=== PATIENT | female | born 1995 | race Caucasian/White ===

== ENCOUNTER 2018-09-15 18:55 | Emergency (ER) | payer OTHER, SELFPAY ==
--- OUTSIDE RECORDS SUMMARY | 2018-09-15 18:57 | XMS REPORT ---
:1995 [facility] [address] [place] [address] Care Team Providers Name Role Phone Unavailable Unavailable Unavailable Problems This patient has no known problems. Allergies, Adverse Reactions, Alerts This patient has no known allergies or adverse reactions. Medications This patient has no known medications.
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
--- NOTE | 2018-09-15 20:03 | RAD REPORT ---
EXAM DESCRIPTION: RAD - Shoulder Left 2 View - 09/15/2018 7:57 pm CLINICAL HISTORY: Left shoulder pain FINDINGS: No fracture or dislocation is seen.
--- NOTE | 2018-09-15 20:05 | RAD REPORT ---
EXAM DESCRIPTION: Yaya Springer (2 Views)09/15/2018 7:57 pm CLINICAL HISTORY: Chest pain COMPARISON: None FINDINGS: The lungs appear clear of acute infiltrate. The heart is normal size IMPRESSION: No acute abnormalities displayed
[2018-09-15] MEDS ORDERED: IBUPROFEN 200 MG TAB PO ONE (20:16)
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
[2018-09-15] MEDS ORDERED: HYDROCODONE/APAP 5/325 MG TAB ONE (22:19)
== END 2018-09-15 22:26 | disposition home or self-care (01) ==
LOC: ER 18:55
DX: S13.4XXA Sprain of ligaments of cervical spine, initial encounter (principal); S43.492A Other sprain of left shoulder joint, initial encounter; V49.40XA Driver injured in collision with unspecified motor vehicles in traffic accident, initial encounter; F43.10 Post-traumatic stress disorder, unspecified
CPT/HCPCS: 71046; 72125; 99284

== ENCOUNTER 2020-04-21 13:05 | Emergency (ER) | payer BC, OTHER ==
--- OUTSIDE RECORDS SUMMARY | 2020-04-21 13:08 | XMS REPORT | Continuity of Care Document ---
:1995 Author Organization [facility] t Address [address] [place] [address] Care Team Providers Name Role Phone Angelika Butler Attending Clinician Doctor Unassigned, Name Attending Clinician Unavailable Honorio Worthy MD Attending Clinician Problems This patient has no known problems. Allergies, Adverse Reactions, Alerts This patient has no known allergies or adverse reactions. Medications This patient has no known medications. Procedures This patient has no known procedures. Encounters Start End Encounter Admission Attending Care Care Encounter Source Date/Time Date/Time Type Type Clinicians Facility Department ID 2019-08-29 2019-08-29 Emergency Lela Trino [facility] [id number] 17:15:04 19:33:00 Angelika Moran [id number] [place] [id number] [place] [id number] 2019-08-29 2019-08-29 Orders Doctor BAILEY [id number] 00:00:00 00:00:00 Only UnassignedLEWIS [id number] [place] [facility] [id number] 2019-02-16 2019-02-18 Urgent Deacon [facility] [id number] 19:07:34 15:32:49 Care [facility] [id number] Surgical [id number] [place] [id number] [address] [place] Results This patient has no known results.
[2020-04-21 13:51] LABS: Basophils % 0.3 % (0-1.3); Hematocrit 37.2 % (36.0-45.0); Lymphocytes % 13.5 % (15.3-44.8); MPV 9.6 fL (7.6-11.3); RBC Red Blood Cell Count 3.91 M/uL (3.86-4.86)
[2020-04-21] MEDS ORDERED: PROMETHAZINE INJ 25 MG/ML AMP ONE (13:52)
[2020-04-21] MEDS ORDERED: NA CHLORIDE 0.9% 1,000 ML ONE (13:52)
--- NOTE | 2020-04-21 14:28 | RAD REPORT ---
EXAM DESCRIPTION: US - Transvaginal OB - 04/21/2020 2:19 pm CLINICAL HISTORY: with pelvic pain COMPARISON: None. FINDINGS: The uterus measures 11 x 5 x 7 centimeters. A normal appearing gestational sac is present within the endometrium. Within this is a yolk sac and pole with a crown-rump length 1.8 centim eters. Cardiac activity 169 beats per minute 2 centimeter right ovarian cyst. Ovaries are normal in size and echotexture. . An adnexal mass is not noted. No significant free fluid is seen. IMPRESSION: Single live intrauterine with an estimated gestational age 8 weeks 0 days ANGEL 12/01/2020 2 centimeter right ovarian cyst
[2020-04-21 14:33] LABS: BUN Blood Urea Nitrogen 7 mg/dL (7-18); Bicarbonate 26 mmol/L (21-32); Glucose Level 84 mg/dL (74-106); Potassium 3.3 mmol/L (3.5-5.1); Sodium Level 138 mmol/L (136-145)
[2020-04-21 14:35] LABS: Urine Blood NEGATIVE (NEG); Urine Glucose NEGATIVE (NEG); Urine Protein 1+ (NEG)
[2020-04-21 14:39] LABS: HCG, Quantitative > 2000000 mIU/mL (1-3)
--- NOTE | 2020-04-21 15:00 | ER ---
Nurse's Notes [facility] Name: Mable Verma Age: 24 yrs Sex: Female : 1995 Arrival Date: 04/21/2020 Time: 13:07 Bed 17 Private MD: Diagnosis: Nausea and vomiting;8 weeks gestation of Presentation: 04/21 13:17 Chief complaint: Patient states: Dr. Camargo said if I don't come to the ER then he wont jl7 see me. I run the risk of miscarriage because I've been having really bad morning sickness and I've lost 8 pounds in 2 weeks. Reports lower abdominal cramping. Coronavirus screen: Client denies travel out of the [place] in the last 14 days. At this time, the client does not indicate any symptoms associated with coronavirus-19. Ebola Screen: No symptoms or risks identified at this time. Initial Sepsis Screen: Does the patient meet any 2 criteria? No. Patient's initial sepsis screen is negative. Does the patient have a suspected source of infection? No. Patient's initial sepsis screen is negative. Risk Assessment: Do you want to hurt yourself or someone else? Patient reports no desire to harm self or others. Onset of symptoms was April 07, 2020. Care prior to arrival: None. 13:17 Method Of Arrival: Ambulatory jl7 13:17 Acuity: WOJCIECH 3 jl7 Triage Assessment: 13:20 General: Appears in no apparent distress. uncomfortable, Behavior is calm, cooperative, jl7 appropriate for age. Pain: Complains of pain in right lower quadrant and left lower quadrant Pain currently is 3 out of 10 on a pain scale. GI: Reports nausea, vomiting. 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 - Social history:: Smoking status: Patient denies any tobacco usage or history of. Screenin:29 Abuse screen: Denies threats or abuse. Denies injuries from another. Nutritional ca1 screening: No deficits noted. Tuberculosis screening: No symptoms or risk factors identified. Fall Risk None identified. Assessment: 13:29 General: Appears in no apparent distress. comfortable, Behavior is calm, cooperative, ca1 appropriate for age. Pain: Complains of pain in right lower quadrant and left lower quadrant Pain currently is 3 out of 10 on a pain scale. Quality of pain is described as crampy. Neuro: Level of Consciousness is awake, alert, obeys commands, Oriented to person, place, time, situation. GI: Abdomen is round non-distended, Bowel sounds present X 4 quads. Abd is soft and non tender X 4 quads. Reports nausea, vomiting. : No signs and/or symptoms were reported regarding the genitourinary system. Derm: Skin is intact, is healthy with good turgor, Skin is pink, warm \T\ dry. Musculoskeletal: Circulation, motion, and sensation intact. Capillary refill < 3 seconds. 14:05 Reassessment: US at bedside. ca1 14:30 Reassessment: U/S COMPLETE, RESULTS PENDING. NO N/V NOTED AT THIS TIME. bp 15:25 Reassessment: Patient appears in no apparent distress at this time. Patient is alert, ca1 oriented x 3, equal unlabored respirations, skin warm/dry/pink. Vital Signs: 13:17 BP 118 / 75; Pulse 80; Resp 16; Temp 98.3; Pulse Ox 100% ; Weight 50.35 kg; Pain 3/10; jl7 14:30 BP 109 / 73; Pulse 77; Resp 16; Pulse Ox 100% ; bp 15:26 BP 98 / 53; Pulse 81; Resp 15 S; Pulse Ox 100% on R/A; ca1 ED Course: 13:07 Patient arrived in ED. as 13:09 Nere[facility] Dempsey [facility]-C [facility]. kb 13:10 Kishor Patel MD is Attending Physician. kb 13:19 Triage completed. jl7 13:20 Arm band placed on right wrist. jl7 13:28 Marie Mallory, ЕКАТЕРИНА is Primary Nurse. ca1 13:29 Patient has correct armband on for positive identification. Placed in gown. Bed in low ca1 position. Call light in reach. Side rails up X 1. Pulse ox on. NIBP on. 13:37 No provider procedures requiring assistance completed. Initial lab(s) drawn, by me, ca1 sent to lab. Inserted saline lock: 20 gauge in right antecubital area, using aseptic technique. Blood collected. 13:47 Radiology exam delayed due to test not completed at this time. aa4 14:15 US Transvaginal Ob In Process Unspecified. EDMS 15:26 IV discontinued, intact, bleeding controlled, No redness/swelling at site. Pressure ca1 dressing applied. Administered Medications: 13:39 Drug: NS 0.9% 1000 ml Route: IV; Rate: 1000 ml; Site: right antecubital; ca1 15:25 Follow up: Response: No adverse reaction; IV Status: Completed infusion; IV Intake: ca1 1000ml 13:40 Drug: Phenergan 6.25 mg Route: IVP; Site: right antecubital; ca1 15:01 Follow up: Response: Nausea is decreased bp Intake: 15:25 IV: 1000ml; Total: 1000ml. ca1 Outcome: 15:00 Discharge ordered by . saran 15:26 Discharged to home ambulatory. ca1 15:26 Condition: stable 15:26 Discharge instructions given to patient, Instructed on discharge instructions, follow up and referral plans. medication usage, Demonstrated understanding of instructions, follow-up care, medications, Prescriptions given X 1. 15:28 Patient left the ED. ca1 Signatures: Dispatcher [employer] EDN[place] Nereida Dempsey, BOGOIEC MOVING PICTURE PRODUCER-Jennifer Rangel Amanda aa4 Natasha Chopra RN RN jl7 Peltier, Brian, RN RN bp Acob, Cheryl, RN RN ca1
--- NOTE | 2020-04-21 15:01 | EDPHYS ---
Physician Documentation [facility] Name: Mable Verma Age: 24 yrs Sex: Female : 1995 Arrival Date: 04/21/2020 Time: 13:07 Bed 17 Private MD: ED Physician Kishor Patel HPI: 04/21 14:57 This 24 yrs old Female presents to ER via Ambulatory with complaints of kb Nausea/Vomiting - 8 weeks preg. 14:57 The patient has not experienced similar symptoms in the past. The patient has not kb recently seen a physician. 14:58 The patient presents to the emergency department with nausea and vomiting. The kb estimated gestational age is 8 weeks. course: care: none, Leakage of Fluid: none appreciated, Ultrasound: the patient has not had an ultrasound, Risk/complications: no obvious risks or complications are appreciated. Previous pregnancies: in previous pregnancies patient has had. Associated signs and symptoms: Pertinent positives: nausea, vomiting, Pertinent negatives: abdominal pain, chest pain, diarrhea, dysuria, fever, frequency, ruptured membranes, seizure, shortness of breath, vaginal bleeding, vaginal discharge. Pt reports she has had bad morning sickness for weeks. Called Dr Camargo's office to make and appt and they said to come to the ER. 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 - Social history:: Smoking status: Patient denies any tobacco usage or history of. ROS: 14:55 Constitutional: Negative for fever, chills, and weight loss, Cardiovascular: Negative kb for chest pain, palpitations, and edema, Respiratory: Negative for shortness of breath, cough, wheezing, and pleuritic chest pain, Back: Negative for injury and pain, : Negative for injury, bleeding, discharge, and swelling, MS/Extremity: Negative for injury and deformity, Skin: Negative for injury, rash, and discoloration, Neuro: Negative for headache, weakness, numbness, tingling, and seizure. 14:55 Abdomen/GI: Positive for nausea and vomiting, Negative for abdominal pain. Exam: 14:55 Constitutional: This is a well developed, well nourished patient who is awake, alert, kb and in no acute distress. Head/Face: Normocephalic, atraumatic. Chest/axilla: Normal chest wall appearance and motion. Nontender with no deformity. No lesions are appreciated. Cardiovascular: Regular rate and rhythm with a normal S1 and S2. No gallops, murmurs, or rubs. Normal PMI, no JVD. No pulse deficits. Respiratory: Lungs have equal breath sounds bilaterally, clear to auscultation and percussion. No rales, rhonchi or wheezes noted. No increased work of breathing, no retractions or nasal flaring. Abdomen/GI: Soft, non-tender, with normal bowel sounds. No distension or tympany. No guarding or rebound. No evidence of tenderness throughout. Skin: Warm, dry with normal turgor. Normal color with no rashes, no lesions, and no evidence of cellulitis. MS/ Extremity: Pulses equal, no cyanosis. Neurovascular intact. Full, normal range of motion. Neuro: Awake and alert, GCS 15, oriented to person, place, time, and situation. Cranial nerves II-XII grossly intact. Motor strength 5/5 in all extremities. Sensory grossly intact. Cerebellar exam normal. Normal gait. Vital Signs: 13:17 BP 118 / 75; Pulse 80; Resp 16; Temp 98.3; Pulse Ox 100% ; Weight 50.35 kg; Pain 3/10; jl7 14:30 BP 109 / 73; Pulse 77; Resp 16; Pulse Ox 100% ; bp 15:26 BP 98 / 53; Pulse 81; Resp 15 S; Pulse Ox 100% on R/A; ca1 MDM: 13:22 Patient medically screened. kb 14:54 Data reviewed: vital signs, nurses notes. Data interpreted: Pulse oximetry: on room air kb is 100 %. Interpretation: normal. Counseling: I had a detailed discussion with the patient and/or guardian regarding: the historical points, exam findings, and any diagnostic results supporting the discharge/admit diagnosis, lab results, radiology results, the need for outpatient follow up, an OB/Gyne specialist, to return to the emergency department if symptoms worsen or persist or if there are any questions or concerns that arise at home. 04/21 13:22 Order name: Quantitative Hcg; Complete Time: 14:42 kb 04/21 13:22 Order name: Abo/rh Typing; Complete Time: 14:26 kb 04/21 13:22 Order name: Basic Metabolic Panel; Complete Time: 14:42 kb 04/21 13:22 Order name: CBC with Diff; Complete Time: 14:08 kb 04/21 14:31 Order name: Urine Dipstick--Ancillary (enter results) bd 04/21 14:31 Order name: Urine --Ancillary (enter results) bd 04/21 13:22 Order name: Urine Test (obtain specimen); Complete Time: 13:31 kb 04/21 13:22 Order name: IV Saline Lock; Complete Time: 13:43 kb 04/21 13:22 Order name: Labs collected and sent; Complete Time: 13:43 kb 04/21 13:30 Order name: US Transvaginal Ob; Complete Time: 14:48 kb 04/21 14:36 Order name: Urine --Ancillary; Complete Time: 14:36 EDMS 04/21 14:36 Order name: Urine Dipstick-Ancillary; Complete Time: 14:36 EDMS 04/21 13:22 Order name: NPO; Complete Time: 13:31 kb 04/21 13:22 Order name: Urine Dipstick-Ancillary (obtain specimen); Complete Time: 13:31 kb 04/21 14:49 Order name: PO challenge; Complete Time: 15:01 kb Administered Medications: 13:39 Drug: NS 0.9% 1000 ml Route: IV; Rate: 1000 ml; Site: right antecubital; ca1 15:25 Follow up: Response: No adverse reaction; IV Status: Completed infusion; IV Intake: ca1 1000ml 13:40 Drug: Phenergan 6.25 mg Route: IVP; Site: right antecubital; ca1 15:01 Follow up: Response: Nausea is decreased bp Disposition: 04/22 13:37 Co-signature as Attending Physician, Kishor DURAN I agree with the assessment and bozena plan of care. Disposition: 04/21/20 15:00 Discharged to Home. Impression: Nausea and vomiting, 8 weeks gestation of . - Condition is Stable. - Discharge Instructions: First Trimester of , Ojfz-ox-Ormi, Nausea and Vomiting, Adult, [id number]. - Prescriptions for Diclegis 10- 10 mg Oral tablet,delayed release (DR/EC) - take 1 tablet by ORAL route once daily As needed; 20 tablet. - Medication Reconciliation Form, Thank You Letter, Antibiotic Education, Prescription Opioid Use, Work release form form. - Follow up: Emergency Department; When: As needed; Reason: Worsening of condition. Follow up: Private Physician; When: 2 - 3 days; Reason: Recheck today's complaints, Continuance of care, Re-evaluation by your physician. Signatures: Dispatcher [employer] EDMS Nereida Dempsey, MANAGER PARKING-C MANAGER PARKING-Kishor Barreto MD MD cha Leal, Jahala, RN RN jl7 Marie Mallory RN RN ca1 Miguel Apodaca RN bp Corrections: (The following items were deleted from the chart) 04/21 15:28 15:00 04/21/2020 15:00 Discharged to Home. Impression: Nausea and vomiting; 8 weeks ca1 gestation of . Condition is Stable. Forms are Medication Reconciliation Form, Thank You Letter, Antibiotic Education, Prescription Opioid Use. Follow up: Emergency Department; When: As needed; Reason: Worsening of condition. Follow up: Private Physician; When: 2 - 3 days; Reason: Recheck today's complaints, Continuance of care, Re-evaluation by your physician. kb
[2020-04-21 16:04] VITALS: TEMP 98.3; O2SAT 100
[2020-04-21 16:14] VITALS: BP 98/53
== END 2020-04-21 15:28 | disposition home or self-care (01) ==
LOC: ER 13:05
DX: O21.0 Mild hyperemesis gravidarum (principal); Z3A.08 8 weeks gestation of pregnancy
CPT/HCPCS: 96361; 85025; 80048; 36415; 86900; 81025; 86901; 84702; 81003; 76817; 96374; 99284; J2550; J7030

== ENCOUNTER 2020-05-15 12:40 | Emergency (ER) | payer BC, OTHER ==
[2020-05-15 13:16] LABS: Absolute Lymphocytes (CBC) 1.3 K/uL (0.7-4.9); Basophils % 0.6 % (0-1.3); Lymphocytes % 21.4 % (15.3-44.8); MPV 9.5 fL (7.6-11.3); RBC Red Blood Cell Count 4.13 M/uL (3.86-4.86)
[2020-05-15 13:51] LABS: BUN Blood Urea Nitrogen 7 mg/dL (7-18); Bicarbonate 26 mmol/L (21-32); Glucose Level 84 mg/dL (74-106); HCG, Quantitative 88952 mIU/mL (1-3); Potassium 3.6 mmol/L (3.5-5.1); Sodium Level 137 mmol/L (136-145)
--- NOTE | 2020-05-15 14:10 | ER ---
Nurse's Notes [facility] Name: Mable Verma Age: 25 yrs Sex: Female : 1995 Arrival Date: 05/15/2020 Time: 12:43 Bed 5 Private MD: Diagnosis: 11 weeks gestation of ;Threatened Presentation: 05/15 12:50 Chief complaint: Dark red vaginal bleeding since this morning. Pt reports she is approx hb 11 weeks , LMP 8/. . Coronavirus screen: At this time, the client does not indicate any symptoms associated with coronavirus-19. Ebola Screen: No symptoms or risks identified at this time. Initial Sepsis Screen: Does the patient meet any 2 criteria? No. Patient's initial sepsis screen is negative. Does the patient have a suspected source of infection? No. Patient's initial sepsis screen is negative. Risk Assessment: Do you want to hurt yourself or someone else? Patient reports no desire to harm self or others. Onset of symptoms was May 15, 2020. 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 - Social history:: Smoking status: Patient denies any tobacco usage or history of. Screenin:23 Abuse screen: Denies threats or abuse. Denies injuries from another. Nutritional iw screening: No deficits noted. Tuberculosis screening: No symptoms or risk factors identified. Fall Risk None identified. Assessment: 13:23 General: Appears in no apparent distress. Behavior is calm, cooperative. Pain: iw Complains of pain in left lower quadrant and right lower quadrant. Neuro: Level of Consciousness is awake, alert, obeys commands, Oriented to person, place, time, situation, Moves all extremities. Full function. Respiratory: Respiratory effort is even, unlabored, Respiratory pattern is regular, symmetrical. GI: Bowel sounds present X 4 quads. Abd is soft X 4 quads. Derm: Skin is intact, is healthy with good turgor. Vital Signs: 12:50 BP 115 / 61; Pulse 87; Resp 16; Temp 97.8; Pulse Ox 100% on R/A; Weight 48.99 kg; hb Height 5 ft. 1 in. (154.94 cm); Pain 4/10; 12:50 Body Mass Index 20.41 (48.99 kg, 154.94 cm) hb ED Course: 12:43 Patient arrived in ED. ag5 12:47 Ne[facility] Dem[facility]-C [facility]. kb 12:47 Warner Brewer MD is Attending Physician. kb 12:52 Triage completed. hb 12:52 Arm band placed on. hb 12:55 Verito Greenwood, RN is Primary Nurse. iw 13:14 by ED staff, sent to lab. Inserted saline lock: 20 gauge in right antecubital area, iw using aseptic technique. Blood collected. 13:30 Patient has correct armband on for positive identification. iw 13:45 1St Trimest Single 1St Fetus In Process Unspecified. EDMS 14:24 No provider procedures requiring assistance completed. IV discontinued, intact, iw bleeding controlled, No redness/swelling at site. Pressure dressing applied. Administered Medications: No medications were administered Outcome: 14:09 Discharge ordered by . kb 14:24 Discharged to home ambulatory. iw 14:24 Condition: good 14:24 Discharge instructions given to patient, Instructed on discharge instructions, follow up and referral plans. Demonstrated understanding of instructions, follow-up care. 14:25 Patient left the ED. iw Signatures: Dispatcher [employer] EDMS Nereida Dempsey FNP-C FNP-Verito Groves RN RN Miley Wallace RN RN Monalisa Buckley ag5
--- NOTE | 2020-05-15 14:10 | EDPHYS ---
Physician Documentation [facility] Name: Mable Verma Age: 25 yrs Sex: Female : 1995 Arrival Date: 05/15/2020 Time: 12:43 Bed 5 Private MD: ED Physician Warner Brewer HPI: 05/15 12:52 This 25 yrs old Female presents to ER via Ambulatory with complaints of kb Abdominal Cramping, Vaginal Bleeding, + Preg <12wks. 12:52 The patient presents to the emergency department with vaginal bleeding, that is kb moderate. The estimated gestational age is 11 weeks. course: care: private OB physician, Dr. Camargo. Previous pregnancies: in previous pregnancies patient has had. Associated signs and symptoms: Pertinent positives: abdominal pain, vaginal bleeding. The patient has not experienced similar symptoms in the past. The patient has not recently seen a physician. Pt reports she had a gush of blood come from her vagina when driving home this morning. States she called her OB and was told to come to the ER. . 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 - Social history:: Smoking status: Patient denies any tobacco usage or history of. ROS: 12:54 Constitutional: Negative for fever, chills, and weight loss, Cardiovascular: Negative kb for chest pain, palpitations, and edema, Respiratory: Negative for shortness of breath, cough, wheezing, and pleuritic chest pain, Abdomen/GI: Negative for abdominal pain, nausea, vomiting, diarrhea, and constipation, MS/Extremity: Negative for injury and deformity, Skin: Negative for injury, rash, and discoloration, Neuro: Negative for headache, weakness, numbness, tingling, and seizure. 12:54 Abdomen/GI: Positive for abdominal cramps. 12:54 : Positive for vaginal bleeding. Exam: 12:54 Constitutional: This is a well developed, well nourished patient who is awake, alert, kb and in no acute distress. Head/Face: Normocephalic, atraumatic. Chest/axilla: Normal chest wall appearance and motion. Nontender with no deformity. No lesions are appreciated. Cardiovascular: Regular rate and rhythm with a normal S1 and S2. No gallops, murmurs, or rubs. Normal PMI, no JVD. No pulse deficits. Respiratory: Lungs have equal breath sounds bilaterally, clear to auscultation and percussion. No rales, rhonchi or wheezes noted. No increased work of breathing, no retractions or nasal flaring. Back: No spinal tenderness. No costovertebral tenderness. Full range of motion. Skin: Warm, dry with normal turgor. Normal color with no rashes, no lesions, and no evidence of cellulitis. MS/ Extremity: Pulses equal, no cyanosis. Neurovascular intact. Full, normal range of motion. Neuro: Awake and alert, GCS 15, oriented to person, place, time, and situation. Cranial nerves II-XII grossly intact. Motor strength 5/5 in all extremities. Sensory grossly intact. Cerebellar exam normal. Normal gait. 12:54 Abdomen/GI: Inspection: abdomen appears normal, Bowel sounds: normal, in all quadrants, Palpation: soft, in all quadrants, moderate abdominal tenderness, in the right lower quadrant and left lower quadrant. Vital Signs: 12:50 BP 115 / 61; Pulse 87; Resp 16; Temp 97.8; Pulse Ox 100% on R/A; Weight 48.99 kg; hb Height 5 ft. 1 in. (154.94 cm); Pain 4/10; 12:50 Body Mass Index 20.41 (48.99 kg, 154.94 cm) hb MDM: 12:50 Patient medically screened. kb 12:54 Data reviewed: vital signs, nurses notes. Data interpreted: Pulse oximetry: on room air kb is 100 %. Interpretation: normal. 14:08 Counseling: I had a detailed discussion with the patient and/or guardian regarding: the kb historical points, exam findings, and any diagnostic results supporting the discharge/admit diagnosis, lab results, radiology results, the need for outpatient follow up, an OB/Gyne specialist, to return to the emergency department if symptoms worsen or persist or if there are any questions or concerns that arise at home. ED course: Protagen reports FHT 153, measuring 11 weeks 1 day. Small subchorionic bleed. 05/15 12:52 Order name: Quantitative Hcg; Complete Time: 13:57 kb 05/15 12:52 Order name: Basic Metabolic Panel; Complete Time: 13:57 kb 05/15 12:52 Order name: Urine Dipstick-Ancillary (obtain specimen) kb 05/15 12:52 Order name: CBC with Diff; Complete Time: 13:30 kb 05/15 13:45 Order name: 1St Trimest Single 1St Fetus EDMS 05/15 12:52 Order name: IV Saline Lock; Complete Time: 13:14 kb 05/15 12:52 Order name: Labs collected and sent; Complete Time: 13:14 kb 05/15 12:52 Order name: NPO; Complete Time: 13:14 kb Administered Medications: No medications were administered Disposition: 05/15/20 14:09 Discharged to Home. Impression: 11 weeks gestation of , Threatened . - Condition is Stable. - Discharge Instructions: Vaginal Bleeding During , First Trimester, Subchorionic Hematoma, Threatened Miscarriage, [id number]. - Medication Reconciliation Form, Thank You Letter, Antibiotic Education, Prescription Opioid Use, Work release form form. - Follow up: Emergency Department; When: As needed; Reason: Worsening of condition. Follow up: Private Physician; When: 2 - 3 days; Reason: Recheck today's complaints, Continuance of care, Re-evaluation by your physician. Addendum: 05/16/2020 14:40 Co-signature as Attending Physician, Warner Brewer MD I agree with the assessment and k dr plan of care. Signatures: Dispatcher [employer] [facility] Nereida Dempsey, PILE DRIVING SUPERVISOR-C PILE DRIVING SUPERVISOR-Ckb Warner Brewer MD MD [facility] Verito Greenwood, ЕКАТЕРИНА RN iw Miley Wallace RN RN Corrections: (The following items were deleted from the chart) 05/15 13:45 12:50 Transvaginal Ob+US.RAD.BRZ ordered. [facility] 14:25 14:09 05/15/2020 14:09 Discharged to Home. Impression: 11 weeks gestation of ; iw Threatened . Condition is Stable. Forms are Medication Reconciliation Form, Thank You Letter, Antibiotic Education, Prescription Opioid Use. Follow up: Emergency Department; When: As needed; Reason: Worsening of condition. Follow up: Private Physician; When: 2 - 3 days; Reason: Recheck today's complaints, Continuance of care, Re-evaluation by your physician. kb
--- NOTE | 2020-05-15 14:19 | RAD REPORT ---
EXAM DESCRIPTION: US - 1St Trimest Single 1St Fetus - 05/15/2020 2:00 pm CLINICAL HISTORY: Abd cramping, ;Vaginal bleeding COMPARISON: No comparisons FINDINGS: A single gestational sac is seen within the uterus. The shape of the sac is within normal limits for gestational age. Within the sac is a single pole with crown-rump length of 4.5 cm, c orrelating to estimated gestational age of 11 weeks 1 day. Estimated date of delivery is 12/03/2020. Heart rate is 152 BPM. Placenta demonstrates evidence of a marginal placenta previa. 15 mm subchorionic bleed is seen inferi madhu. The maternal adnexa are within normal limits. Left ovary is obscured by bowel gas. Normal Doppler blo od flow was demonstrated to the right ovary. IMPRESSION: Single live early intrauterine gestation with estimated gestational age of 11 weeks 1 da y, ANGEL 12/03/2020. 15 mm inferiorly located subchorionic bleed. Marginal placenta previa suspected. This can be reassessed on mid second trimester followup sonograph y.
--- OUTSIDE RECORDS SUMMARY | 2020-05-15 14:27 | XMS REPORT | Continuity of Care Document ---
:[address] [facility] t Address [address] [place] [address] Care Team Providers Name Role Phone Angelika [...] Department ID 2019-08-29 2019-08-29 Emergency Lela Trino [facility] [id number] 17:15:04 19:33:00 Angelika Moran [id number] [place] [id number] [place] [phone] [id number] 2019-08-29 2019-08-29 Orders Doctor BAILEY [id number] 00:00:00 00:00:00 Only UnassLEWIS randolph [id number] [place] [facility] [id number] 2019-02-16 2019-02-18 Urgent Deacon MSDANIEL [id number] 19:07:34 15:32:49 Care [facility] [id number] Surgical [id number] [place] [phone] [address] [place] Results This patient has no known results.
[2020-05-15 14:52] VITALS: BP 115/61; TEMP 97.8; O2SAT 100
== END 2020-05-15 14:25 | disposition home or self-care (01) ==
LOC: ER 12:40
DX: O20.0 Threatened abortion (principal); Z3A.11 11 weeks gestation of pregnancy
CPT/HCPCS: 36415; 76801; 80048; 84702; 85025; 99283

== ENCOUNTER 2020-06-14 01:28 | Emergency (ER) | payer BC, OTHER ==
--- OUTSIDE RECORDS SUMMARY | 2020-06-14 01:30 | XMS REPORT | Continuity of Care Document ---
:[address] [facility] t Address [address] [place] [address] Care Team Providers Name Role Phone Angelika [...] Department ID 2019-08-29 2019-08-29 Emergency Lela Trino [facility] [id number] 17:15:04 19:33:00 Angelika Moran [id number] [place] [id number] [place] [id number] 2019-08-29 2019-08-29 Orders Doctor BAILEY [id number] 00:00:00 00:00:00 Only UnassignedLEWIS [id number] [place] [facility] [id number] 2019-02-16 2019-02-18 Urgent Deacon [facility] [id number] 19:07:34 15:32:49 Care [facility] [id number] Surgical [id number] Specialti [phone] es [address] [place] Results This patient has no known results.
[2020-06-14] MEDS ORDERED: PROMETHAZINE INJ 25 MG/ML AMP ONE (02:32)
[2020-06-14 02:33] LABS: Absolute Lymphocytes (CBC) 1.1 K/uL (0.7-4.9); Basophils % 0.2 % (0-1.3); Hematocrit 36.2 % (36.0-45.0); Lymphocytes % 8.5 % (15.3-44.8); MPV 9.4 fL (7.6-11.3); RBC Red Blood Cell Count 3.83 M/uL (3.86-4.86)
[2020-06-14] MEDS ORDERED: FAMOTIDINE 20 MG/2 ML VIAL IV ONE (02:33)
[2020-06-14] MEDS ORDERED: NA CHLORIDE 0.9% 1,000 ML ONE ×2 (02:33→05:14)
[2020-06-14] MEDS ORDERED: MORPHINE 2 MG/ML SYR ONE ×2 (02:33→04:25)
[2020-06-14 02:58] LABS: Urine Blood 3+ (NEG); Urine Glucose NEGATIVE (NEG); Urine Protein 3+ (NEG); Urine Specific Gravity 1.025 (1.005-1.030)
[2020-06-14 03:04] LABS: ALT/SGPT 14 U/L (12-78); AST/SGOT 11 U/L (15-37); Albumin 3.2 g/dL (3.4-5.0); Alkaline Phosphatase 60 U/L (45-117); BUN Blood Urea Nitrogen 11 mg/dL (7-18); Bicarbonate 27 mmol/L (21-32); Bilirubin Direct < 0.1 mg/dL (0-0.2); Bilirubin Total 0.3 mg/dL (0.2-1.0); Glucose Level 86 mg/dL (74-106); HCG, Quantitative 22229 mIU/mL (1-3); Lipase 157 U/L (73-393); Potassium 3.7 mmol/L (3.5-5.1); Sodium Level 140 mmol/L (136-145)
[2020-06-14] MEDS ORDERED: CEFTRIAXONE/SWI 1gm 1 GM/10 ML SYR ONE (03:06)
[2020-06-14 04:06] LABS: Urine Bacteria >50 /HPF (<20); Urine Culture Reflex Order NOT NEEDED; Urine Mucus 2+ /HPF (NONE SEEN)
[2020-06-14] MEDS ORDERED: ONDANSETRON 4 MG/2 ML VIAL ONE (05:21)
--- NOTE | 2020-06-14 06:21 | ER ---
Nurse's Notes [facility] Name: Mable Verma Age: 25 yrs Sex: Female : 1995 Arrival Date: 06/14/2020 Time: 01:30 Bed 17 Private MD: Diagnosis: Acute Pyelonephritis;Vomiting Presentation: 06/14 01:40 Chief complaint: Patient states: I am having right lower abdominal pain that radiates jb4 to my back. I have had UTI's in the past. I was told that I currently have a UTI and have Ecoli in my urine. Coronavirus screen: Client denies travel out of the [place] in the last 14 days. Client presents with at least one sign or symptom that may indicate coronavirus-19. Standard/surgical mask placed on the client. Ebola Screen: No symptoms or risks identified at this time. Initial Sepsis Screen: Does the patient meet any 2 criteria? No. Patient's initial sepsis screen is negative. Does the patient have a suspected source of infection? Yes: Dysuria/Frequency/Urgency/UTI. Risk Assessment: Do you want to hurt yourself or someone else? Patient reports no desire to harm self or others. Onset of symptoms was June 14, 2020. Transition of care: patient was not received from another setting of care. 01:40 Method Of Arrival: Wheelchair jb4 01:40 Acuity: WOJCIECH 3 jb4 BUSINESS FUNCTIONAL ANALYST: 01:44 Pt reports being 15 weeks . jb4 Historical: - Allergies: 01:44 No Known Allergies; jb4 - Home Meds: 01:44 None [Active]; jb4 - PMHx: 01:44 PTSD; Anxiety; UTI; jb4 - PSHx: 01:44 None; jb4 - Immunization history:: Adult Immunizations up to date. - Social history:: Smoking status: Patient denies any tobacco usage or history of. Patient uses street drugs, marijuana, Patient/guardian denies using alcohol. Screenin:15 Abuse screen: Denies threats or abuse. Nutritional screening: No deficits noted. em Tuberculosis screening: No symptoms or risk factors identified. Fall Risk None identified. Assessment: 01:45 General: Appears in no apparent distress. uncomfortable, Behavior is calm, cooperative, jb4 appropriate for age. Pain: Complains of pain in right lower quadrant Pain radiates to right low back Pain currently is 10 out of 10 on a pain scale. Neuro: Level of Consciousness is awake, alert, obeys commands, Oriented to person, place, time, situation. Cardiovascular: Patient's skin is warm and dry. Respiratory: Airway is patent Respiratory effort is even, unlabored, Respiratory pattern is regular, symmetrical. GI: Abdomen is flat, non-distended, Reports lower abdominal pain. : Urine is cloudy, Reports pain in right flank(s), lower quadrant(s). EENT: No signs and/or symptoms were reported regarding the EENT system. Derm: Skin is intact, Skin is pink, warm \\T\\ dry. Musculoskeletal: Circulation, motion, and sensation intact. Range of motion: intact in all extremities. 03:00 Reassessment: Patient appears in no apparent distress at this time. Patient and/or jb4 family updated on plan of care and expected duration. Pain level reassessed. Patient is alert, oriented x 3, equal unlabored respirations, skin warm/dry/pink. Patient states feeling better. 04:00 Reassessment: Patient appears in no apparent distress at this time. Patient and/or jb4 family updated on plan of care and expected duration. Pain level reassessed. Patient is alert, oriented x 3, equal unlabored respirations, skin warm/dry/pink. 05:03 Reassessment: Patient appears in no apparent distress at this time. Patient and/or jb4 family updated on plan of care and expected duration. Pain level reassessed. Patient is alert, oriented x 3, equal unlabored respirations, skin warm/dry/pink. Provider notified that patients blood pressure dropped to 87/53 after morphine administration. See mar for orders. Patient states feeling better. 05:32 Reassessment: introduced self as nurse report received from Matthew WILLAMS. . cr4 06:18 Reassessment: Patient and/or family updated on plan of care and expected duration. Pain cr4 level reassessed. Patient is alert, oriented x 3, equal unlabored respirations, skin warm/dry/pink. Patient states feeling better. GI:. 07:18 Reassessment: Patient appears in no apparent distress at this time. Patient and/or em family updated on plan of care and expected duration. Pain level reassessed. Patient is alert, oriented x 3, equal unlabored respirations, skin warm/dry/pink. shift mgr nurse was unable to give report due to shift change Patient states feeling better. 07:37 Reassessment: report given to ЕКАТЕРИНА Orozco at [facility], pending EMS transportation. em 08:30 Reassessment: report given to [facility]. em Vital Signs: 01:40 BP 115 / 75; Pulse 68; Resp 16; Temp 99.5(TE); Pulse Ox 98% on R/A; Pain 10/10; jb4 03:00 BP 100 / 63; Pulse 79; Resp 16; Pulse Ox 100% on R/A; jb4 04:15 BP 106 / 74; Pulse 84; Resp 16; Pulse Ox 100% on R/A; jb4 05:00 BP 87 / 53; Pulse 74; Resp 16; Temp 98.8(O); Pulse Ox 98% on R/A; jb4 05:32 BP 93 / 55; Pulse 80; Pulse Ox 96% ; cr4 06:19 BP 94 / 59; Pulse 66; Resp 20; Pulse Ox 100% ; cr4 07:14 BP 101 / 59; Pulse 69; Resp 18; Pulse Ox 99% on R/A; Pain 7/10; em Vitals: 03:00 Heart Tones 141. jb4 ED Course: 01:30 Patient arrived in ED. ag3 01:33 Fadi Bhatia, ЕКАТЕРИНА is Primary Nurse. jb4 01:33 Cory Ferreira MD is Attending Physician. mh7 01:43 Triage completed. jb4 01:44 Arm band placed on right wrist. jb4 02:15 Initial lab(s) drawn, by me, sent to lab. Inserted saline lock: 20 gauge in right jb4 antecubital area, using aseptic technique. Blood collected. 05:22 initiated transfer with Renetta from [facility] transfer center. She stated "the doctor will [facility] accept the patient, but we are waiting for a bed. I will call you back when there is a bed available.". 06:17 COVID-19 Sent. cr4 06:30 administrative approval given by Conchis Wang/ patient has been accepted to [address] 10 D 1066/ Dr. Lundy has accepted the patient in transfer/ report to be called to [phone]. 07:15 Placed in gown. Bed in low position. Call light in reach. em 08:36 No provider procedures requiring assistance completed. Patient admitted, IV remains in em place. Administered Medications: 02:28 Drug: Pepcid 20 mg Route: IVP; Site: right antecubital; jb4 03:00 Follow up: Response: No adverse reaction jb4 02:30 Drug: Phenergan 12.5 mg Route: IVP; Site: right antecubital; jb4 03:00 Follow up: Response: No adverse reaction; Nausea is decreased jb4 02:33 Drug: NS 0.9% 1000 ml Route: IV; Rate: 1000 ml; Site: right antecubital; jb4 08:30 Follow up: IV Status: Completed infusion; IV Intake: 1000ml em 02:33 Drug: morphine 2 mg Route: IVP; Site: right antecubital; jb4 02:57 Drug: Rocephin - (cefTRIAXone) 1 grams {Note: Given IVP per pharmacy protocol.} Route: jb4 IVPB; Infused Over: 30 mins; Site: right antecubital; 03:00 Follow up: IV Status: Completed infusion; IV Intake: 10ml jb4 03:30 Follow up: Response: No adverse reaction jb4 04:18 Drug: morphine 2 mg Route: IVP; Site: right antecubital; cr4 05:05 Follow up: Response: No adverse reaction; Pain is decreased; RASS: Alert and Calm (0) jb4 05:05 Drug: NS 0.9% 1000 ml Route: IV; Rate: 1 bolus; Site: right antecubital; jb4 06:18 Follow up: IV Status: Completed infusion; IV Intake: 1000ml cr4 05:15 Drug: Zofran (Ondansetron) 4 mg Route: IVP; Site: right antecubital; cr4 06:00 Follow up: Response: No adverse reaction; Nausea is decreased cr4 Intake: 03:00 IV: 10ml; Total: 10ml. jb4 06:18 IV: 1000ml; Total: 1010ml. cr4 08:30 IV: 1000ml; Total: 2010ml. em Outcome: 06:20 ER care complete, transfer ordered by MD. rosario 08:36 Transferred by ground EMS to [facility], Transfer form em completed. X-rays sent w/ patient. 08:36 Condition: stable 08:36 Instructed on the need for transfer, Demonstrated understanding of instructions. 08:37 Patient left the ED. em Addendum: 06/17/2020 08:37 Addendum: Culture Results: Positive urine culture. pt was d/c from [facility] last night, i w currently on abx. Signatures: Jaya Silverio, RN RN Verito Cutler, RN ЕКАТЕРИНА iw Tori Murcia, RN RN cr4 Fadi Bhatia RN RN 4 Adan Erwin [facility] Ana Townsend 3 Cory Ferreira MD MD mh7 Corrections: (The following items were deleted from the chart) 06/14 06:48 06:38 administrative approval given by Renetta Mendoza/ patient has been accepted to [place] [id number] [address] 10 D 1066/ Dr. Lundy has accepted the patient in transfer/ report to be called to [phone] [facility]
--- NOTE | 2020-06-14 06:21 | EDPHYS ---
Physician Documentation [facility] Name: Mable Verma Age: 25 yrs Sex: Female : 1995 Arrival Date: 06/14/2020 Time: 01:30 Bed 17 Private MD: ED Physician Cory Ferreira HPI: 06/14 02:38 This 25 yrs old Female presents to ER via Wheelchair with complaints of mh7 Abdominal Pain, Back Pain. 02:38 The patient presents with pain that is acute, with no known mechanism of injury. mh7 02:40 The symptoms are located in the right low back. Onset: The symptoms/episode mh7 began/occurred last night. The pain radiates to the abdomen. Associated signs and symptoms: Pertinent positives: abdominal pain, nausea, vomiting, Pertinent negatives: chest pain, constipation, dysuria, fever, headache, hematuria, incontinence, numbness, tingling, urinary retention, weakness. The problem was sustained from unknown cause. Modifying factors: The patient symptoms are alleviated by nothing, the patient symptoms are aggravated by movement. Severity of symptoms: At their worst the symptoms were moderate, last night, in the emergency department the symptoms are unchanged. HOSPITAL ORDERLY: 01:44 Pt reports being 15 weeks . jb4 Historical: - Allergies: 01:44 No Known Allergies; jb4 - Home Meds: 01:44 None [Active]; jb4 - PMHx: 01:44 PTSD; Anxiety; UTI; jb4 - PSHx: 01:44 None; jb4 - Immunization history:: Adult Immunizations up to date. - Social history:: Smoking status: Patient denies any tobacco usage or history of. Patient uses street drugs, marijuana, Patient/guardian denies using alcohol. ROS: 02:40 Constitutional: Negative for fever, chills, and weight loss, Eyes: Negative for injury, mh7 pain, redness, and discharge, ENT: Negative for injury, pain, and discharge, Neck: Negative for injury, pain, and swelling, Cardiovascular: Negative for chest pain, palpitations, and edema, Respiratory: Negative for shortness of breath, cough, wheezing, and pleuritic chest pain, : Negative for injury, bleeding, discharge, and swelling, MS/Extremity: Negative for injury and deformity, Skin: Negative for injury, rash, and discoloration, Neuro: Negative for headache, weakness, numbness, tingling, and seizure, Psych: Negative for depression, anxiety, suicide ideation, homicidal ideation, and hallucinations, Allergy/Immunology: Negative for hives, rash, and allergies, Endocrine: Negative for neck swelling, polydipsia, polyuria, polyphagia, and marked weight changes, Hematologic/Lymphatic: Negative for swollen nodes, abnormal bleeding, and unusual bruising. Exam: 06:01 Head/Face: Normocephalic, atraumatic. Eyes: Pupils equal round and reactive to light, mh7 extra-ocular motions intact. Lids and lashes normal. Conjunctiva and sclera are non-icteric and not injected. Cornea within normal limits. Periorbital areas with no swelling, redness, or edema. Neck: Trachea midline, no thyromegaly or masses palpated, and no cervical lymphadenopathy. Supple, full range of motion without nuchal rigidity, or vertebral point tenderness. No Meningismus. Chest/axilla: Normal chest wall appearance and motion. Nontender with no deformity. No lesions are appreciated. Cardiovascular: Regular rate and rhythm with a normal S1 and S2. No gallops, murmurs, or rubs. Normal PMI, no JVD. No pulse deficits. Respiratory: Lungs have equal breath sounds bilaterally, clear to auscultation and percussion. No rales, rhonchi or wheezes noted. No increased work of breathing, no retractions or nasal flaring. 06:01 Skin: Warm, dry with normal turgor. Normal color with no rashes, no lesions, and no evidence of cellulitis. MS/ Extremity: Pulses equal, no cyanosis. Neurovascular intact. Full, normal range of motion. Neuro: Awake and alert, GCS 15, oriented to person, place, time, and situation. Cranial nerves II-XII grossly intact. Motor strength 5/5 in all extremities. Sensory grossly intact. Cerebellar exam normal. Normal gait. Psych: Awake, alert, with orientation to person, place and time. Behavior, mood, and affect are within normal limits. 06:01 Constitutional: The patient appears in no acute distress, alert, awake, uncomfortable. 06:01 Abdomen/GI: Inspection: gravid appearance, is noted, Bowel sounds: normal, in all quadrants, Palpation: moderate abdominal tenderness, in the suprapubic area, posterior aspect of right lateral abdomen and right lower quadrant, Rectal exam: the exam is deferred, because of patient request, Indicators: McBurney's point is not tender, Malhotra's sign is negative, Rovsing's sign is negative, Obturator sign is negative, Psoas sign is negative, Liver: no appreciated palpable abnormalities, Hernia: not appreciated. 06:01 Back: normal spinal alignment noted, CVA tenderness, that is moderate, is noted on the right, muscle spasm, is not present. 06:01 : CVA tenderness, on the right, Pelvic Exam: The exam is refused by the patient/guardian. The risks and consequences are understood by the patient, Gravid exam: Fundal height: consistent with gestational age, Bladder: tenderness, that is moderate. Vital Signs: 01:40 BP 115 / 75; Pulse 68; Resp 16; Temp 99.5(TE); Pulse Ox 98% on R/A; Pain 10/10; jb4 03:00 BP 100 / 63; Pulse 79; Resp 16; Pulse Ox 100% on R/A; jb4 04:15 BP 106 / 74; Pulse 84; Resp 16; Pulse Ox 100% on R/A; jb4 05:00 BP 87 / 53; Pulse 74; Resp 16; Temp 98.8(O); Pulse Ox 98% on R/A; jb4 05:32 BP 93 / 55; Pulse 80; Pulse Ox 96% ; cr4 06:19 BP 94 / 59; Pulse 66; Resp 20; Pulse Ox 100% ; cr4 07:14 BP 101 / 59; Pulse 69; Resp 18; Pulse Ox 99% on R/A; Pain 7/10; em MDM: 06:01 Differential diagnosis: Obesity Pyelonephritis Ureterolithiasis. Data [facility] reviewed: vital signs, nurses notes, lab test result(s), Beta HCG: CBC, electrolytes, urinalysis. Data interpreted: Pulse oximetry: on room air is 96 %. Interpretation: normal. Counseling: I had a detailed discussion with the patient and/or guardian regarding: the historical points, exam findings, and any diagnostic results supporting the discharge/admit diagnosis, lab results, the need to transfer to another facility, for higher level of care, [facility] does not immediately have the required specialist. Response to treatment: the patient's symptoms have mildly improved after treatment. 06:20 Patient medically screened. [facility] 06/14 02:04 Order name: Basic Metabolic Panel; Complete Time: 03:30 [facility] 06/14 02:04 Order name: CBC with Diff; Complete Time: 02:54 [facility] 06/14 02:04 Order name: Hepatic Function; Complete Time: 03:30 [facility] 06/14 02:04 Order name: Lipase; Complete Time: 03:30 [facility] 06/14 02:04 Order name: HCG-Quantitative; Complete Time: 03:30 [facility] 06/14 02:52 Order name: Urine Dipstick--Ancillary (enter results); Complete Time: 03:30 [facility] 06/14 03:05 Order name: Urine Culture [facility] [place] 06/14 03:05 Order name: Urine Microscopic Only; Complete Time: 05:47 [facility] [place] 06/14 05:15 Order name: COVID-19 [facility] 06/14 07:07 Order name: SARS-COV-2 RT PCR [facility] 06/14 02:04 Order name: IV Saline Lock; Complete Time: 02:34 [facility] 06/14 02:04 Order name: Labs collected and sent; Complete Time: 02:34 [facility] 06/14 02:04 Order name: Urine Dipstick-Ancillary (obtain specimen); Complete Time: 02:45 [facility] 06/14 02:19 Order name: Heart Tones; Complete Time: 03:27 [facility] Administered Medications: 02:28 Drug: Pepcid 20 mg Route: IVP; Site: right antecubital; jb4 03:00 Follow up: Response: No adverse reaction [facility] [place] 02:30 Drug: Phenergan 12.5 mg Route: IVP; Site: right antecubital; jb4 03:00 Follow up: Response: No adverse reaction; Nausea is decreased jb4 02:33 Drug: NS 0.9% 1000 ml Route: IV; Rate: 1000 ml; Site: right antecubital; jb4 08:30 Follow up: IV Status: Completed infusion; IV Intake: 1000ml 02:33 Drug: morphine 2 mg Route: IVP; Site: right antecubital; jb4 02:57 Drug: Rocephin - (cefTRIAXone) 1 grams {Note: Given IVP per pharmacy protocol.} Route: jb4 IVPB; Infused Over: 30 mins; Site: right antecubital; 03:00 Follow up: IV Status: Completed infusion; IV Intake: 10ml jb4 03:30 Follow up: Response: No adverse reaction jb4 04:18 Drug: morphine 2 mg Route: IVP; Site: right antecubital; cr4 05:05 Follow up: Response: No adverse reaction; Pain is decreased; RASS: Alert and Calm (0) jb4 05:05 Drug: NS 0.9% 1000 ml Route: IV; Rate: 1 bolus; Site: right antecubital; jb4 06:18 Follow up: IV Status: Completed infusion; IV Intake: 1000ml cr4 05:15 Drug: Zofran (Ondansetron) 4 mg Route: IVP; Site: right antecubital; cr4 06:00 Follow up: Response: No adverse reaction; Nausea is decreased cr4 Disposition: 06/14/20 06:20 [facility] Diagnosis are Acute Pyelonephritis, Vomiting. - Reason for transfer: Higher level of care. - Accepting physician is Dr. Lundy. - Condition is Stable. - Problem is new. - Symptoms are unchanged. Signatures: Dispatcher [employer] [facility] Jaya Silverio RN Tori Marion RN RN cr4 Fadi Bhatia RN RN jb4 Cory Ferreira MD MD mh7 Corrections: (The following items were deleted from the chart) 05:46 05:16 CORONAVIRUS ordered. [facility] EDPR 06:41 06:20 06/14/2020 06:20 [facility] Diagnosis is Acute 7 Pyelonephritis; Vomiting. Reason for transfer: Higher level of care. Accepting physician is Dr. Sarabia. Condition is Stable. Problem is new. Symptoms are unchanged. [facility] 08:37 06:41 06/14/2020 06:20 [facility] Diagnosis is Acute em Pyelonephritis; Vomiting. Reason for transfer: Higher level of care. Accepting physician is Dr. Lundy. Condition is Stable. Problem is new. Symptoms are unchanged. 7
[2020-06-14 15:30] VITALS: TEMP 98.8
[2020-06-14 15:36] VITALS: BP 101/59; O2SAT 99
== END 2020-06-14 08:37 | disposition short-term general hospital (02) ==
LOC: ER 01:28
DX: O23.02 Infections of kidney in pregnancy, second trimester (principal); Z3A.15 15 weeks gestation of pregnancy; Z20.828 Contact with and (suspected) exposure to other viral communicable diseases
CPT/HCPCS: 96361; 87088; 85025; 87086; 80048; 36415; 80076; 84702; 87077; 87186; 83690; 96375; 96374; 99285; U0003; J2550; J2270 ×2; J0696; J7030 ×2; J2405; 81003; 81015

== ENCOUNTER 2020-11-11 11:42 | Inpatient (IN) | payer BC, OTHER ==
[2020-11-11] MEDS ORDERED: Ringers Lactate 1,000 ML IV PRN (18:01)
--- OUTSIDE RECORDS SUMMARY | 2020-11-11 18:06 | XMS REPORT | Continuity of Care Document ---
:1995 Author Organization [facility] t Address [address] [place] [address] Care Team Providers Name Role Phone Lab, Fam Pob I Attending Clinician Unavailable Doctor Unassigned, Name Attending Clinician Unavailable Katherine WILLAMS, M Attending Clinician Marcelo Lundy DO Attending Clinician Angelika Butler Attending Clinician Honorio Worthy MD Attending Clinician Marcelo Lundy DO Admitting Clinician Problems This patient has no known problems. Allergies, Adverse Reactions, Alerts This patient has no known allergies or adverse reactions. Medications This patient has no known medications. Procedures This patient has no known procedures. Encounters Start End Encounter Admission Attending Care Care Encounter Source Date/Time Date/Time Type Type Clinicians Facility Department ID 2020-10-27 2020-10-27 Laboratory Lab, [facility] 1.2.840.114 [id number] 16:44:39 17:04:39 Only Fam Pob I Health [id number] [place] [id number] [place] [phone] nal [address] 2020-10-24 2020-10-24 Laboratory Lab, [facility] 1.2.840.114 [id number] 13:15:55 13:35:55 Only Fam Pob I Health [id number] [place] [id number] [place] [phone] nal [address] 2020-08-07 2020-08-07 Laboratory Lab, [facility] 1.2.840.114 [id number] 19:22:00 19:42:00 Only Fam Pob I Health [id number] [place] [id number] [facility] [phone] nal 0[address] 2020-07-08 2020-07-08 Orders Doctor BAILEY 1.2.840.114 [id number] 00:00:00 00:00:00 Only Unassigned, LEWIS [id number] [facility] [id number] 2020-06-17 2020-06-17 Transition Lexie Murphy 1.2.840.114 [id number] 00:00:00 00:00:00 of Care Consuelo Daly [id number] [place] [id number] 2020-06-14 2020-06-16 Hospital Kamron Hyacinth 1.2.840.114 [id number] 10:01:00 16:15:00 Encounter Norberto Loaiza [id number] [facility] [id number] 2019-08-29 2019-08-29 Emergency Trino Vogel [facility] 1.2.840.114 [id number] 17:15:04 19:33:00 Angelika Moran [id number] [place] [id number] [place] [id number] 2019-08-29 2019-08-29 Orders Doctor LEO 1.2.840.114 [id number] 00:00:00 00:00:00 Only Unassigned, LEWIS 350.1.13.[address] [place] [facility] [id number] [id number] 2019-02-16 2019-02-18 Urgent Deacon [facility] 1.2.840.114 [id number] 19:07:34 15:32:49 Care [facility] [id number] Surgical [id number] Specialti [phone] 370 [place] Results This patient has no known results.
[2020-11-11 18:16] VITALS: BMI 24.7
[2020-11-11 18:40] LABS: Urine Appearance CLEAR (Clear); Urine Bilirubin NEGATIVE (Negataive); Urine Blood 2+ (Negative); Urine Color YELLOW (Yellow); Urine Glucose NEGATIVE (Negative); Urine Protein NEGATIVE (Negative); Urine Urobilinogen 0.2 mg/dL (0.2-1.0)
[2020-11-11 18:45] LABS: Absolute Lymphocytes (CBC) 1.5 K/uL (0.7-4.9); Basophils % 0.4 % (0-1.3); Lymphocytes % 14.1 % (15.3-44.8); MPV 9.2 fL (7.6-11.3); RBC Red Blood Cell Count 3.81 M/uL (3.86-4.86)
[2020-11-11 18:51] LABS: Urine Microscopic Reflex ORDER UMIC
[2020-11-11] MEDS ORDERED: Ringers Lactate 1,000 ML IV SCH (19:00)
[2020-11-11] MEDS ORDERED: 0.2% ROPIVACAINE (200 MG/100 ML) BAG EP ONE (19:15)
[2020-11-11] MEDS ORDERED: FENTANYL CITR 100 MCG/2 ML IV ONE (19:16)
[2020-11-11] MEDS ORDERED: ROPIVACAINE HCL 0.2% 20ML AMP EP ONE (19:17)
[2020-11-11 19:30] LABS: Urine Bacteria 20-50 /HPF (<20); Urine RBC <5 /HPF (NONE SEEN)
[2020-11-11] MEDS ORDERED: FENTANYL CITR 100 MCG/2 ML ONE (19:39)
[2020-11-11] MEDS ORDERED: ROPIVACAINE HCL 0 ML ONE (19:40)
[2020-11-11] MEDS ORDERED: ROPIVACAINE HCL 100 ML EP ONE (19:40)
[2020-11-12] MEDS ORDERED: CARBOPROST TROME 250 MCG/ML IM PRN (00:50)
[2020-11-12] MEDS ORDERED: METHYLERGONOVINE 0.2MG/ML AMP IM PRN (00:50)
[2020-11-12] MEDS ORDERED: OXYTOCIN/LR 20 UNIT/1,000 ML BAG IV SCH ×2 (05:00→10:00)
[2020-11-12] MEDS ORDERED: ROPIVACAINE HCL 20 ML ONE (06:01)
[2020-11-12] MEDS ORDERED: ROPIVACAINE HCL 100 ML EP ONE (06:10)
[2020-11-12] MEDS ORDERED: LIDOCAINE 1% MPF 30 ML VIAL ONE (09:18)
[2020-11-12] MEDS ORDERED: DOCUSATE NA/SENNA CONC 1 TAB PO PRN (09:26)
[2020-11-12] MEDS ORDERED: Oxycodone HCl/Acetaminophen 1 TAB TAB PO PRN ×2 (09:26)
[2020-11-12] MEDS ORDERED: DIPHENHYDRAMINE 25 MG TAB/CAP PO PRN (09:26)
[2020-11-12] MEDS ORDERED: ACETAMINOPHEN 500 MG TAB PO PRN (09:26)
[2020-11-12] MEDS ORDERED: BISACODYL 10 MG RECTAL SUPP PR PRN (09:26)
[2020-11-12] MEDS: METHYLERGONOVINE 0.2 MG TAB PO PRN ×4 (10:30→23:00)
--- NOTE | 2020-11-12 11:26 | PREOPHP ---
Date of Admission: 11/11/2020 History Of Present Illness: This is a 25-year-old 4, para 2, at 37 weeks 2 days, came in ear ly labor. She is now progressed to a 4.5 cm, vertex -1 to -2. FHTs normal, reactive. Rupture of me mbranes, clear fluid, but with some clots that could be a very small marginal abruption. The uterus is relaxing in between contractions and baby looks good. She is Rh positive, immune to rubella. Neg ative strep. Negative COVID. Family History: Shows 1 of the grandparents with hypertension. Two grandparents with diabetes. Past Surgical History: The patient had no surgery. Allergies: SHE IS NOT ALLERGIC TO ANYTHING. Social History: She does not smoke. First child had a kidney problem and had to have surgery for th at problem. Physical Examination: Vital Signs: All stable. HEENT: Clear. Pupils equal, round, reactive to light and accommodation. Conjunctivae well perfused . No oral, lingual, or buccal lesions. Chest and Lungs: Clear. Breasts: Not checked today. Abdomen: 37 weeks size. The patient is very small and does not have large baby. Extremities: Clear without edema, cyanosis, or clubbing. Assessment/plan: She has an epidural and it is very comfortable at this point. We will start Pitoci n augmentation. Anticipate delivery sometime later this morning. JANUSZ/TORITO Voice ID: [id number]
[2020-11-12] MEDS: IBUPROFEN 200 MG TAB PO PRN ×2 (12:18→23:10)
[2020-11-12] MEDS ORDERED: OXYTOCIN/LR 20 UNIT/1,000 ML BAG IV ONE (12:35)
--- NOTE | 2020-11-12 19:56 | OP ---
Surgeon: Phillip Camargo MD A 25-year-old 4, para 2, at 37 weeks and 2 days, came in early labor. Started on light Pitoc in augmentation. Epidural anesthesia established at 4 to 5 cm, at patient's request. Rupture of mem branes at about 5 to 5.5 cm. The patient went into a more active labor pattern. Delivered rapidly a 6 pounds 9 ounces female. Apgars 9 and 9. No episiotomy. No lacerations worthy of suturing. Schu ltze delivery of the placenta, which was heavily calcified but otherwise normal. Mild uterine hypoto nus. 0.2 mg of Methergine IM as well as IV drip Pitocin and massage. Estimated blood loss 400 to 45 0 cc. The patient tolerated all procedures well. Stable at this point. Rh positive, immune to rube lla. Negative strep. Negative COVID. Final Diagnoses: Term intrauterine at 37 weeks 2 days, spontaneous labor, vaginal delivery , mild uterine hypotonus. JANUSZ/BRENDAL Voice ID: [id number] Report ID: [id number]
[2020-11-12 21:24] LABS: RPR (Rapid Plasma Reagin) NON-REACT (NON-REACT)
[2020-11-13] MEDS: IBUPROFEN 200 MG TAB PO PRN (04:00)
[2020-11-13] MEDS ORDERED: Tdap (Diph,Pertuss(Acell),Tet Vac) 0.5 ML SYR IMVAC ONE (08:24)
--- NOTE | 2020-11-13 08:47 | DS ---
Hospital Course: This is a 25-year-old female, 4, para 2, 37 weeks and 2 days, came in in ea rly labor. Subsequently, delivered a 6-pound 9-ounce female. Apgars 9 and 9. Epidural anesthesia. No episiotomy. No lacerations. Schultze delivery of the placenta, inspected, noted to be normal. Mild uterine hypertonus. 400-450 cc blood loss. 0.2 mg of Methergine as well as IV drip Pitocin mas flora. Strep negative. COVID negative. Rh positive. Immune to rubella. ; afebrile, ambu lating and voiding, lochia is normal. No post epidural problems. Requests no analgesics on dismissa l. Tdap has been offered. Final Diagnoses: Term intrauterine at 37 weeks 2 days, spontaneous labor, spontaneous vagi nal delivery. Epidural anesthesia. Mild uterine hypotonus. Tdap offered. JANUSZ/TORITO Voice ID: [id number] Report ID: [id number]
[2020-11-13 15:06] VITALS: BP 110/55; TEMP 97
[2020-11-16 12:46] LABS: HBsAG Nonreactive (Nonreactive)
== END 2020-11-13 12:55 | disposition home or self-care (01) | DRG 807 ==
LOC: L&D 11:42 → 2ND-WC 18:04
PROVIDERS: ADMIT Specialist; ATTEND Specialist
PROC: 10E0XZZ Delivery of Products of Conception, External Approach (ICD-10-PCS; principal; 2020-11-12)
PROC: 10907ZC Drainage of Amniotic Fluid, Therapeutic from Products of Conception, Via Natural or Artificial Opening (ICD-10-PCS; 2020-11-12)
DX: O62.0 Primary inadequate contractions (principal); Z37.0 Single live birth; Z3A.37 37 weeks gestation of pregnancy; Z20.822 Contact with and (suspected) exposure to COVID-19
CPT/HCPCS: 36415; 81003; 81015; 85025; 86592; 86901; 87086; 87088; 87340; 90471; 90715; 99218; J2210; J2590; J2795; J3010; J7120; U0003

== ENCOUNTER 2021-08-14 19:29 | Emergency (ER) | payer BC, OTHER ==
--- OUTSIDE RECORDS SUMMARY | 2021-08-14 19:34 | XMS REPORT | Continuity of Care Document ---
:1995 Author Organization [facility] t Address [address] [place] [address] Care Team Providers Name Role Phone MARCELO JOHANSEN Attending Clinician Unavailable Lab, Fam Pob I Attending Clinician Unavailable Heide HEALY, J Attending Clinician Dorian JAEGER Attending Clinician Unavailable Anesp IT DESKTOP SUPPORT SPECIALIST Attending Clinician ANENE Attending Clinician Unavailable Doctor Unassigned, Name Attending Clinician Unavailable Katherine WILLAMS, M Attending Clinician Marcelo Johansen DO Attending Clinician Angelika Butler Attending Clinician Deacon DURAN E Attending Clinician Unknown Attending Clinician Unavailable MARCELO JOHANSEN Admitting Clinician Unavailable Marcelo Johansen DO Admitting Clinician Payers Payer Name Policy Type Policy Number Effective Date Expiration Date S [place] [facility] [id number] 2020 [facility] 00:00[facility]00 [id number] 2018 OUT OF STATE 00:00:00 Problems Condition Condition Condition Status Onset Resolution Last Treating Co mments Source Name Details Category Date Date Treatment Clinician Date Pyelonephr Pyelonephr Disease Active 2019-07 U nivers itis itis 08-14 ity of 00:00: [address] Branch Complete Complete Disease Active Overview: Un jose spontaneou spontaneou 2-07 ICD10 it y of s s 00:00: Diagnosis [place] 00 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 Susceptibl Susceptibl Disease Active U nivers e to e to 1-30 ity of varicella var[place]ella [place] (non-immun (non-immun 00 Me dical e), e), Branch currently currently Need for Need for Disease Active Unive rs prophylact prophylact 08-21 it y of ic ic 00:00: [place] vaccinatio vaccinatio 00 Me dical n and n and Branch inoculatio inoculatio n against n against influenza influenza Vaginal Vaginal Disease Active Univers bleeding bleeding 08-21 ity of 00:00: [place] 00 Medical [place] High-risk High-risk Disease Active Uni vers 08-21 ity of 00:00: [place] 00 Medical Branch Asthma Asthma Disease Active Overview: Univer s - ICD10 ity of 00:00: Diagnosis [place] 00 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 [place] Social History Social Habit Start Date Stop Date Quantity Comments Source Exposure to Yes [facility] SARS-CoV-2 [place] [facility] (event) Branch Alcohol intake 2020-06-14 2020-06-14 Current University of 00:00:00 00:00:00 non-drinker of [facility] alcohol Branch (finding) Tobacco use and 2020-06-14 2020-06-14 Never used Universit y of exposure 00:00:00 00:00:[address] [facility] [place] Sex Ass[birth year] At [birth year] Universit y of 00:00:00 00:00:[address] [facility] Smoking Status Start Date Stop Date Source Never smoker [facility] Medications Ordered Filled Start Stop Current Ordering Indication Dosage Frequency Signature Comments Components Source Medication Medication Date Date Medication? Clinician (SIG) Name Name amoxicillin 2019-07 Yes [id number] 1{tbl} Take 1 Univers -clavulanat 1-23 tablet by ity of e 00:00: mouth 2 [place] (AUGMENTIN) (two) Medical 875-125 mg times Branch per tablet daily. amoxicillin 2019-07 Yes [id number] 1{tbl} Take 1 Univers -clavulanat 1-23 tablet by ity of e 00:00: mouth 2 [place] (AUGMENTIN) 00 (two) Medical 875-125 mg times Branch per tablet daily. amoxicillin 2019-07 Yes [id number] 1{tbl} Take 1 Univers -clavulanat 1-23 tablet by ity of e 00:00: mouth 2 [place] (AUGMENTIN) 00 (two) Medical 875-125 mg times Branch per tablet daily. amoxicillin 2019-07 Yes [id number] 1{tbl} Take 1 Univers -clavulanat 1-23 tablet by ity of e 00:00: mouth 2 [place] (AUGMENTIN) 00 (two) Medical 875-125 mg times Branch per tablet daily. amoxicillin 2019-07 Yes [id number] 1{tbl} Take 1 Univers -clavulanat 1-23 tablet by ity of e 00:00: mouth 2 [place] (AUGMENTIN) 00 (two) Medical 875-125 mg times Branch per tablet daily. amoxicillin 2019-07 Yes [id number] 1{tbl} Take 1 Univers -clavulanat 1-23 tablet by ity of e 00:00: mouth 2 [place] (AUGMENTIN) 00 (two) Medical 875-125 mg times Branch per tablet daily. KCL 2019-07- No 40meq 40 mEq, Univers (KLOR-CON 08-15 Oral, ity of M20) tablet 12:30: 11:52 [place] 1 [place] 40 [place]Eq 00 :00 dose, [facility] 06/15/20 Branch at 0630, Routine acetaminoph 2019-07 2020- No 1{tbl} 1 tablet, Univers en-codeine 08-14 Oral, ONCE it y of (TYLENOL 22:57: 23:07 NOW, 1 [place] #3) 300-30 00 :00 dose, Sat Medi ney mg tablet 1 06/14/20 Bran ch tablet at 1700, Routine NaCl 0.9% 2019-07- No 1000mL at 125 Uni vers (NS) IV 08-14-22 mL/hr, IV ity of infusion 21:30: 16:40 Infusion, Guillermo as 1,000 mL 00 :50 CONTINUOUS Medic al , Starting Branch 06/14/20 at 1530, Until 06/15/20 at 1040, Routine cefTRIAXone 2019- Yes 1000mg 1,000 mg, Univers (ROCEPHIN) 08-14 IV ity of 1,000 mg in 21:00: Piggyback, [place] NaCl 0.9% 00 Q24H ABX, Medic al (NS) 50 mL First dose Bra nch MINI-BAG on 06/14/20 at 1500, Until Discontinu ed, 50 mL
Reas on for Anti-Infec tive: Documented Infection< br>Documen piyush Infection Site: Urine<br&g t;Duration of Therapy: 7 days cephALEXin 2019- 2020- No 500mg 500 mg, Un jose (KEFLEX) 08-30- Oral, ity of capsule 500 02:00: 00:59 [place]CE[place] 1 [place] mg [place] :[place] dose, Wed Medical 08/29/19 at Branch 2000, NAI
Re ason for Anti-Infec tive: Documented Infection< br>Documen piyush Infection Site: Urine
D uration of Therapy: Other (see Comments) ondansetron 2020- No 4mg 4 mg, Univ ers (ZOFRAN-ODT 08-30- Oral, ity of ) 01:15: 00:20 ONCE, 1 [place] disintegrat 00 :00 dose, Wed Med ical ing tablet 08/29/19 at [facility] 4 mg 1915, Routine acetaminoph 0 2020- No 650mg 650 mg, U nivers en 08-30-05 Oral, ity of (TYLENOL) 00:15: 23:20 ONCE, 1 [place] tablet 650 00 :00 dose, Wed Medi ney mg 08/29/19 at Branch 1815, NAI ondansetron 2020-0 Yes [id number] 4mg Take 1 Univers (ZOFRAN 2-05 tablet by ity of ODT) 4 mg 00:00: mouth [place] disintegrat 00 every 8 Medic al ing tablet (eight) Branch hours as needed for Nausea and Vomiting (N/V). ondansetron 2020-0 Yes [id number] 4mg Take 1 Univers (ZOFRAN 2-05 tablet by ity of ODT) 4 mg 00:00: mouth [place] disintegrat 00 every 8 Medic al ing tablet (eight) Branch hours as needed for Nausea and Vomiting (N/V). ondansetron 2020-0 Yes [id number] 4mg Take 1 Univers (ZOFRAN 2-05 tablet by ity of ODT) 4 mg 00:00: mouth [place] disintegrat 00 every 8 Medic al ing tablet (eight) Branch hours as needed for Nausea and Vomiting (N/V). ondansetron 2020-0 Yes [id number] 4mg Take 1 Univers (ZOFRAN 2-05 tablet by ity of ODT) 4 mg 00:00: mouth [place] disintegrat 00 every 8 Medic al ing tablet (eight) Branch hours as needed for Nausea and Vomiting (N/V). ondansetron 2020-0 Yes [id number] 4mg Take 1 Univers (ZOFRAN 2-05 tablet by ity of ODT) 4 mg 00:00: mouth [place] disintegrat 00 every 8 Medic al ing tablet (eight) Branch hours as needed for Nausea and Vomiting (N/V). ondansetron 2020-0 Yes [id number] 4mg Take 1 Univers (ZOFRAN 2-05 tablet by ity of ODT) 4 mg 00:00: mouth [place] disintegrat 00 every 8 Medic al ing tablet (eight) Branch hours as needed for Nausea and Vomiting (N/V). ibuprofen 2020-0 Yes [id number] 600mg Take 1 U nivers 600 mg 2-05 tablet by ity of tablet 00:00: mouth [place] 00 every 6 Medical (six) Branch hours as needed for Pain (scale 4-6). ondansetron 2020-0 Yes [id number] 4mg Take 1 Univers (ZOFRAN 2-05 tablet by ity of ODT) 4 mg 00:00: mouth [place] disintegrat 00 every 8 Medic al ing tablet (eight) Branch hours as needed for Nausea and Vomiting (N/V). ibuprofen 2020-0 2020- No [id number] 600mg Take 1 Univers 600 mg 2-05 11-23 tablet by ity of tablet 00:00: 00:00 mouth [place] 00 :00 every 6 Medical (six) Branch hours as needed for Pain (scale 4-6). cephALEXin 2020-0 2020- No [id number] 500mg Take 1 Univers (KEFLEX) 2-05 02-16 capsule by ity of 500 mg 00:00: 05:59 mouth 3 [place] capsule 00 :00 (three) Medical times Branch daily for 10 days. naproxen 2019- Yes [id number] 375mg Take 1 U nivers 375 mg 7-26 tablet by ity of tablet 00:00: mouth 2 [place] 00 (two) Medical times Branch daily with meals. naproxen 2019-0 Yes [id number] 375mg Take 1 U nivers 375 mg 7-26 tablet by ity of tablet 00:00: mouth 2 [place] 00 (two) Medical times Branch daily with meals. naproxen 2018-0 Yes [id number] 375mg Take 1 U nivers 375 mg 7-26 tablet by ity of tablet 00:00: mouth 2 [place] 00 (two) Medical times Branch daily with meals. naproxen 2018- Yes [id number] 375mg Take 1 U nivers 375 mg 7-26 tablet by ity of tablet 00:00: mouth 2 [place] 00 (two) Medical times Branch daily with meals. naproxen 2018- 2020- No [id number] 375mg Take 1 Univers 375 mg 7-26 11-23 tablet by ity of tablet 00:00: 00:00 mouth 2 [place] 00 :00 (two) Medical times Branch daily with meals. erythromyci 2018- Yes [id number] .5[in_u Place 0.5 Univers n 5 mg/gram 5-31 9104 s] Inches in ity of (0.5 %) 00:00: both eyes [place] ophthalmic 00 4 (four) Medic al ointment times Branch daily. erythromyci 2018- Yes [id number] .5[in_u Place 0.5 Univers n 5 mg/gram 5-31 9104 s] Inches in ity of (0.5 %) 00:00: both eyes [place] ophthalmic 00 4 (four) Medic al ointment times Branch daily. erythromyci 2018- Yes [id number] .5[in_u Place 0.5 Univers n 5 mg/gram 5-31 9104 s] Inches in ity of (0.5 %) 00:00: both eyes [place] ophthalmic 00 4 (four) Medic al ointment times Branch daily. erythromyci 2018- Yes [id number] .5[in_u Place 0.5 Univers n 5 mg/gram 5-31 9104 s] Inches in ity of (0.5 %) 00:00: both eyes [place] ophthalmic 00 4 (four) Medic al ointment times Branch daily. erythromyci 2020- No [id number] .5[in_u Place 0.5 Univers n 5 mg/gram 12-22 9104 s] Inches in it y of (0.5 %) 00:00: 00:00 [place] ophthalmic 00 :00 4 (four) Medic al ointment times Branch daily. Immunizations Ordered Filled Immunization Date Status Comments [facility] Immunization Name Name Influenza Virus 2013-08-21 Completed Universit y of Vaccine (3+ yrs) 00:00:00 [facility] Influenza Virus 2013-08-21 Completed Universit y of Vaccine (3+ yrs) 00:00:00 [facility] Influenza Virus 2013-08-21 Completed Universit y of Vaccine (3+ yrs) 00:00:00 [facility] Influenza Virus 2013-08-21 Completed Universit y of Vaccine (3+ yrs) 00:00:00 [facility] Influenza Virus 2013-08-21 Completed Universit y of Vaccine (3+ yrs) 00:00:00 [facility] Influenza Virus 2013-08-21 Completed Universit y of Vaccine (3+ yrs) 00:00:00 [facility] Influenza Virus 2013-08-21 Completed Universit y of Vaccine (3+ yrs) 00:00:00 [facility] Influenza Virus 2013-08-21 Completed Universit y of Vaccine (3+ yrs) 00:00:00 [facility] Influenza Virus 2013-08-21 Completed Universit y of Vaccine (3+ yrs) 00:00:00 [place] [facility] Influenza Virus 2013-08-21 Completed Universit y of Vaccine (3+ yrs) 00:00:00 [facility] TDAP 2013-05-25 Completed University of 00:00:[address] [facility] TDAP 2013-05-25 Completed University of 00:00:[address] [facility] TDAP 2013-05-25 Completed University of 00:00:[address] [facility] [place] TDAP 2013-05-25 Completed University of 00:00:[address] [facility] TDAP 2013-05-25 Completed University of 00:00:[address] [facility] [place] TDAP 2013-05-25 Completed University of 00:00:[address] [facility] [place] Tdap 2013-05-25 Completed University of 00:00:00 [place] [facility] [place] Tdap 2013-05-25 Completed University of 00:00:[address] [facility] [place] Tdap 2013-05-25 Completed University of 00:00:[address] [facility] [place] Tdap 2013-05-25 Completed University of 00:00:[address] [facility] [place] Human Rabies 2013-04-14 Completed University o f Vaccine From 00:00:00 [place] Medica l Chicken Fibroblast Branch Culture (RABAVERT) Human Rabies 2013-04-14 Completed University o f Vaccine From 00:00:00 [place] Medica l Chicken Fibroblast Branch Culture (RABAVERT) Human Rabies 2013-04-14 Completed University o f Vaccine From 00:00:00 [place] Medica l Chicken Fibroblast Branch Culture (RABAVERT) Human Rabies 2013-04-14 Completed University o f Vaccine From 00:00:00 [place] Medica l Chicken Fibroblast Branch Culture (RABAVERT) Human Rabies 2013-04-14 Completed University o f Vaccine From 00:00:00 [place] Medica l Chicken Fibroblast Branch Culture (RABAVERT) Human Rabies 2013-04-14 Completed University o f Vaccine From 00:00:00 [place] Medica l Chicken Fibroblast Branch Culture (RABAVERT) Human Rabies 2013-04-14 Completed University o f Vaccine From 00:00:00 [place] Medica l Chicken Fibroblast Branch Culture (RABAVERT) Human Rabies 2013-04-14 Completed University o f Vaccine From 00:00:00 [place] Medica l Chicken Fibroblast Branch Culture (RABAVERT) Human Rabies 2013-04-14 Completed University o f Vaccine From 00:00:00 [place] Medica l Chicken Fibroblast Branch Culture (RABAVERT) Human Rabies 2013-04-14 Completed University o f Vaccine From 00:00:00 [place] Medica l Chicken Fibroblast Branch Culture (RABAVERT) Vital Signs Vital Name Observation Time Observation Value Comments Source Systolic blood 2020-06-16 99 mm[Hg] University pressure 18:03:[address] [facility] [place] Diastolic blood 2020-06-16 55 mm[Hg] University o f pressure 18:03:[address] [facility] Heart rate 2020-06-16 78 /min University 18:03:[address] [facility] [place] Body temperature 2020-06-16 36.33 Anny University 18:03:[address] [facility] Respiratory rate 2020-06-16 18 /min [facility] 18:03:00 [place] [facility] Oxygen saturation 2020-06-16 98 /min University of in Arterial blood 18:03:00 [facility] [place] [facility] ney by Pulse oximetry Branch Body weight 2020-06-16 54 kg bed scale used University of :48: [facility] [place] BMI 2020-06-16 22.49 kg/m2 University of :48:[address] [facility] [place] Systolic blood 2020-06-16 99 mm[Hg] University of pressure 18:03:00 [place] [facility] Branch Diastolic blood 2020-06-16 55 mm[Hg] University o f pressure 18:03:00 [place] [facility] Branch Heart rate 2020-06-16 78 /min University of 18:03:[address] [facility] [place] Body temperature 2020-06-16 36.33 Anny University of 18:03:[address] [facility] Respiratory rate 2020-06-16 18 /min University of 18:03:[address] [facility] [place] Oxygen saturation 2020-06-16 98 /min University of in Arterial blood 18:03:00 [facility] [place] [facility] ney by Pulse oximetry [place] Body weight 2020-06-16 54 kg bed scale used University of :48: [facility] [place] BMI 2020-06-16 22.49 kg/m2 University of :48:[address] [facility] [place] Body temperature 2019-08-30 38.39 Anny University of 00:09:[address] [facility] [place] Systolic blood 2019-08-29 107 mm[Hg] University of pressure 23:04:00 [place] [facility] Diastolic blood 2019-08-29 66 mm[Hg] University o f pressure 23:04:[address] [facility] [place] Heart rate 2019-08-29 103 /min University of :04:[address] [facility] [place] Respiratory rate 2019-08-29 16 /min University of 23:04:[address] [facility] [place] Body height 2019-08-29 154.9 cm University of 23:04:[address] [facility] [place] Body weight 2019-08-29 54.432 kg University of 23:04:[address] [facility] [place] BMI 2019-08-29 22.67 kg/m2 University of 23:04:[address] [facility] [place] Oxygen saturation 2019-08-29 98 /min University of in Arterial blood 23:04:00 [facility] [place] [facility] ney by Pulse oximetry Branch Body temperature 2019-08-30 38.39 Anny University of 00:09:[address] [facility] [place] Systolic blood 2019-08-29 107 mm[Hg] University of pressure 23:04:00 [place] [facility] Branch Diastolic blood 2019-08-29 66 mm[Hg] University o f pressure 23:04:00 [place] [facility] Branch Heart rate 2019-08-29 103 /min University of 23:04:00 [place] [facility] Branch Respiratory rate 2019-08-29 16 /min University of 23:04:00 [place] [facility] Branch Body height 2019-08-29 154.9 cm University of 23:04:[address] [facility] [place] Body weight 2019-08-29 54.432 kg University of 23:04:[address] [facility] [place] BMI 2019-08-29 22.67 kg/m2 University of 23:04:[address] [facility] [place] Oxygen saturation 2019-08-29 98 /min University of in Arterial blood 23:04:00 [place] [facility]i ney by Pulse oximetry Branch Systolic blood 2019-02-17 104 mm[Hg] University of pressure 00:24:[address] [facility] Diastolic blood 2019-02-17 71 mm[Hg] University o f pressure 00:24:[address] [facility] [place] Heart rate 2019-02-17 90 /min [facility] 00:24:[address] [facility] [place] Body temperature 2019-02-17 36.72 Anny University of 00:24:[address] [facility] [place] Respiratory rate 2019-02-17 16 /min University of 00:24:[address] [facility] [place] Body height 2019-02-17 152.4 cm University of 00:24:[address] [facility] [place] Body weight 2019-02-17 53.343 kg University of 00:24:[address] [facility] [place] BMI 2019-02-17 22.97 kg/m2 University of 00:24:[address] [facility] [place] Oxygen saturation 2019-02-17 98 /min University of in Arterial blood 00:24:00 [facility] [place] [facility] ney by Pulse oximetry Branch Systolic blood 2019-02-17 104 mm[Hg] University of pressure 00:24:[address] [facility] [place] Diastolic blood 2019-02-17 71 mm[Hg] University o f pressure 00:24:[address] [facility] [place] Heart rate 2019-02-17 90 /min University of 00:24:[address] [facility] [place] Body temperature 2019-02-17 36.72 Anny University of 00:24:00 [place] [facility] Branch Respiratory rate 2019-02-17 16 /min University of 00:24:[address] [facility] [place] Body height 2019-02-17 152.4 cm University of 00:24:[address] [facility] [place] Body weight 2019-02-17 53.343 kg University of 00:24:[address] [facility] [place] BMI 2019-02-17 22.97 kg/m2 [facility] 00:24:[address] [facility] [place] Oxygen saturation 2019-02-17 98 /min [place] [facility] Arterial blood 00:24:00 [facility] by Pulse oximetry Branch Procedures Procedure Date / Time Performing Clinician Source Performed AUTHORIZATION FOR RELEASE 2020-07-08 06:01:00 Doctor Unassigned, [facility] [place] [facility] BASIC METABOLIC PANEL (NA, 2020-06-16 11:52:00 Cheyanne Muse [facility] K, CL, CO2, GLUCOSE, BUN, Medica l [place] CREATININE, [place]) CBC WITH DIFF 2020-06-16 11:51:00 Cheyanne Muse [facility] US RETROPERITONEAL LIMITED 2020-06-15 19:23:34 Leana Art [facility] PROTHROMBIN TIME / INR 2020-06-15 09:39:00 Cheyanne Muse [facility] ACTIVATED PARTIAL THRMPLAS 2020-06-15 09:39:00 Cheyanne Msue [facility] BASIC METABOLIC PANEL (NA, 2020-06-15 09:38:00 Cheyanne Muse [facility] K, CL, CO2, GLUCOSE, [facility] [place] CREAT[facility], [place]) CBC WITH DIFF 2020-06-15 09:38:00 [facility] 2020-06-14 17:34:00 [facility] 2020-06-14 17:34:00 Cheyanne Muse [facility] MAGNESIUM 2020-06-14 17:29:00 [facility] VIT[facility] B12, LEVEL 2020-06-14 17:29:00 Cheyanne Muse [facility] FOLATE 2020-06-14 17:29:00 Micha [facility] HEPATIC FUNCTION PANEL 2020-06-14 17:29:00 Cheyanne Muse [facility] ([id number]) (ALB,T.PRO,BILI Medical [place] T,BU/BC,ALT,AST,ALK PHOS) BASIC METABOLIC PANEL (NA, 2020-06-14 17:29:00 [facility], CL, CO2, GLUCOSE, BUN, Medica l Branch CREATININE, [place]) CBC WITH DIFF 2020-06-14 17:29:00 Cheyanne Muse [facility] POCT TEST 2019-08-30 00:15:00 Trino Vogel [facility] URINALYSIS 2019-08-30 00:13:00 Trino Vogel [facility] ADC,CLC OR [facility] ONLY - 2019-08-29 23:18:00 Trino Vogel [facility] INFLUENZA A & B DIRECT Medical B ranch ANTIGEN NOTICE OF PRIVACY 2019-08-29 22:44:30 Doctor Unasstomasa, [facility] PRACTICES [place] [facility] CONSENT/REFUSAL FOR 2019-08-29 22:43:33 Doctor Unasstomasa, [facility] DIAGNOSIS AND TREATMENT [place] [facility] URINALYSIS MICROSCOPIC 2019-02-17 01:00:00 Spenser Worthy [facility] URINE CULTURE 2019-02-17 01:00:00 Deacon [facility] POCT RAPID STREP SCREEN 2019-02-16 00:00:00 DeaconSpenser mcgraw On license of [facility] FOR GROUP A [facility] POCT URINALYSIS 2019-02-16 00:00:00 [facility] Encounters Start End Encounter Admission Attending Care Care Encounter Source Date/Time Date/Time Type Type Clinicians Facility Department ID 2021-05-23 Inpatient U ELENO NHDANIEL [facility] [id number] [facility] 07:03:[address] [facility] 2020-10-27 2020-10-27 Laboratory Lab, [facility] Fam Pob I [facility] 1.2. [id number] Univers 16:44:39 17:04:39 Only Mecredez Jaeger [facility] [id number] [facility] [id number] Guillermo as Professio [phone] [place] [address] Branch [address] 2020-10-27 2020-10-27 Laboratory Lab, [facility] [id number] 16:44:39 17:04:39 Only Fam Pob I Health [id number] [place] [id number] Professio [phone] [place] [address] [address] 2020-10-27 2020-10-27 Outpatient R [facility] [id number] Univers 17:00:00 17:00:00 [id number] ity [facility] 2020-10-27 2020-10-27 Outpatient R HEIDE [facility] [id number] Univers 17:00:00 17:00:00 MERCEDEZ polanco o f [facility] [place] 2020-10-24 2020-10-24 Laboratory Lab, [facility] Fam Pob I [facility] 1.2. [id number] Univers 13:15:55 13:35:55 Only Kayla Wilkins Health [id number] ity of [place] [id number] Guillermo as Professio [phone] [address] Office [facility] One 2020-10-24 2020-10-24 Laboratory Lab, [facility] [id number] 13:15:55 13:35:55 Only Fam Pob I Health [id number] [place] [id number] Professio [phone] [place] [place] [address] Office [facility] One 2020-10-24 2020-10-24 Outpatient R [facility] [id number] -[id number] Univers 13:20:00 13:20:[id number] [facility] 2020-10-24 2020-10-24 Outpatient R ROBERT [facility] [id number] Univers 13:20:00 13:20:00 KAYLA ity [facility] 2020-08-07 2020-08-07 Laboratory Lab, [facility] Fam Pob I [facility] 1.2. 840.114 [id number] Univers 19:22:00 19:42:00 Only [facility] 350.1.13.10 ity of [place] 4.2.7.2.686 Guillermo as Professio [phone] [address] Office Building One 2020-08-07 2020-08-07 Laboratory Lab, [facility] 1.2.840.114 [id number] 19:22:00 19:42:00 Only Fam Pob I Health 350.1.13.10 [place] 4.2.7.2.686 Professio [phone] nal 044 Office Building One 2020-08-07 2020-08-07 Outpatient R [facility] [id number] -[id number] Univers 19:20:00 19:20:00 [id number] of [facility] [place] [place] 2020-08-07 2020-08-07 Outpatient R [facility] [id number] Univers 19:20:00 19:20:00 ity [facility] 2020-07-08 2020-07-08 Orders Doctor BAILEY 1.2.840.114 [id number] Univers 00:00:00 00:00:00 Only Unassigned, LEWIS 350.1.13.10 ity of [place] [facility] 4.2.7.2.686 Guillermo as [phone] [address] 2020-07-08 2020-07-08 Orders Doctor BAILEY 1.2.840.114 [id number] 00:00:00 00:00:00 Only Unassigned, LEWIS 350.1.13.10 [place] [facility] 4.2.7.2.686 [id number] [facility] 2020-06-17 2020-06-17 Transition Lexie Murphy 1.2.840.114 [id number] Univers 00:00:00 00:00:00 of Care Consuelo Jasminey 350.1.13.10 i ty [place] [phone] [address] 2020-06-17 2020-06-17 Transition Lexie Murphy 1.2.840.114 [id number] 00:00:00 00:00:00 of Care Consuelo M Daly 350.1.13.10 [place] 4.2.7.2.686 [id number] [facility] 2020-06-14 2020-06-16 Hospital Hyacinth Johansen 1.2.840.114 [id number] Univers 10:01:00 16:15:00 Encounter Norberto Loaiza 350.1.13.10 ity of [facility] 4.2.7.2.686 Guillermo as [phone] [facility] [address] [place] 2020-06-14 2020-06-16 Hospital Hyacinth Johansen 1.2.840.114 [id number] 10:01:00 16:15:00 Encounter Norberto Loaiza 350.1.13.10 [facility] 4.2.7.2.686 [phone] 096 2020-04-15 2020-04-15 Outpatient R [facility] [id number] -20 Univers 09:15:00 09:15:[id number] of [facility] [place] 2019-08-29 2019-08-29 Emergency Lela, K [facility] 1.2.840.114 [id number] Univers 17:15:04 19:33:00 Angelika Moran 350.1.13.10 i ty of [place] 4.2.7.2.686 [place] [facility] [phone] [facility] [address] [place] 2019-08-29 2019-08-29 Emergency Trino Vogel [facility] 1.2.840.114 [id number] 17:15:04 19:33:00 Angelika Moran 350.1.13.10 [place] 4.2.7.2.686 [place] [phone] [facility] 2019-08-29 2019-08-29 Orders Doctor BAILEY 1.2.840.114 [id number] Univers 00:00:00 00:00:00 Only Unassigned, LEWIS 350.1.13.10 ity of [place] [facility] 4.2.7.2.686 Guillermo as [phone] [facility] [address] 2019-08-29 2019-08-29 Orders Doctor BAILEY 1.2.840.114 [id number] 00:00:00 00:00:00 Only Unassigned, LEWIS 350.1.13.10 [place] [facility] 4.2.7.2.686 [id number] 009 2019-02-16 2019-02-18 [facility] 1.2.840.114 [id number] 19:07:34 15:32:49 Care [facility] 350.1.13.10 Surgical 4.2.7.2.686 Specialti [phone] [address] [place] 2019-02-16 2019-02-18 Urgent Spenser Worthy [facility] 1.2.840.11 [id number] [facility] 19:07:34 15:32:49 Care Unknown, Attending Health 350.1.13.10 ity of Surgical 4.2.7.2.686 Guill[place] as Specialti [phone] [place]ical es [address] [place] Results Test Description Test Test Results Result Source Time Comments Comments US RETROPERITONEAL 2020-05-25. ?Moderate to [facility] LIMITED 23 severe right sided [facility] 15:48:30 hydronephrosis and [place] proximal hydroureter. 2. ?Mild left hydronephrosis. 3. ?No apparent renal calculi. Consider CT abdomen/pelvis without contrastto further evaluate. Preliminary Report Dictated by Resident: Bryan Padilla MD., have reviewed this study and agree with the abovereport.EXAM: US RETROPERITONEAL LIMITED HISTORY: 25 years-old Female with pyelonephritis, patient is 15 weeks. TECHNIQUE: Ultrasound of kidneys was performed with grayscale and selectedcolor Doppler imaging. [employer] images were obtained for the record. COMPARISON: Limited abdominal ultrasound from 05/29/2018 FINDINGS: KIDNEYS:RIGHT:Heidi th: Normal, 11.6 cm.Parenchyma: Normal renal cortical echogenicity and thickness. No focalsolid or cystic renal lesions are detected.Collecting System: Moderate to severe right-sided hydronephrosis andproximal hydroureter.Other: None. LEFT:Length: Normal, 11.4 cm.Parenchyma:Jany l renal cortical echogenicity and thickness. No focal solidor cystic renal lesions are detected.Collecting System: Mild left-sided pelviectasis.Other: None. OTHER: None. [facility], Radiant Results Inft User - 06/16/2020 9:49 AM CSTEXAM: US RETROPERITONEAL LIMITEDHISTORY: 25 years-old Female with pyelonephritis, patient is 15 weeks.TECHN IQUE: Ultrasound of kidneys was performed with grayscale and selectedcolor Doppler imaging. [employer] images were obtained for the record.COMPARISON: Limited abdominal ultrasound from 05/29/2018FINDINGS: KIDNEYS:RIGHT:Lengt h: Normal, 11.6 cm.Parenchyma: Normal renal cortical echogenicity and thickness. No focalsolid or cystic renal lesions are detected.Collecting System: Moderate to severe right-sided hydronephrosis andproximal hydroureter.Other: None.LEFT:Length: Normal, 11.4 cm.Parenchyma:Jany l renal cortical echogenicity and thickness. No focal solidor cystic renal lesions are detected.Collecting System: Mild left-sided pelviectasis.Other: None.OTHER: None.IMPRESSION1. Moderate to severe right sided hydronephrosis and proximal hydroureter.2. Mild left hydronephrosis.3. No apparent renal calculi. Consider CT abdomen/pelvis without contrastto further evaluate.Preliminar y Report Dictated by Resident: Bryan Romero MD., have reviewed this study and agree with the abovereport. Basic Metabolic Panel (NA, K, CL, CO2, GLUCOSE, BUN, 2020-05 12:36:00 CREATININE, CA) Test Item Value Reference Range Interpretation Comme nts NA (test code = 6405023065) 135 mmol/L 135-145 K (test code = 1357994019) 3.6 mmol/L 3.5-5 CL (test code = 6167025472) 108 mmol/L 98-108 CO2 TOTAL (test code = 3599466008) 20 mmol/L 23-31 L AGAP (test code = 0084999515) 2-16 BUN (test code = 4464251901) 3 mg/dL 7-23 L GLUCOSE (test code = 0129132234) 83 mg/dL 70-110 CREATININE (test code = 0.40 mg/dL 0.5-1.04 L 7330036173) CALCIUM (test code = 3113613319) 8.6 mg/dL 8.6-10.6 eGFR Calculation (Non- mL/min/1.73m2 [place]) (test code = 1174123129) eGFR Calculation ( mL/min/1.73m2 [place]) (test code = 8498925213) ALISA (test code = ALISA) Association of Glomerular Filtration Rate (GFR) and Staging of Kidney Disease* + +-------- + ------+| GFR (mL/min/1.73 m2) ?| With Kidney Damage ?| ?Without Kidney Damage+ +-- + +| ?>90 ?| ?Stage one ?| ? Normal ?+ +------- + -------+| ?60-89 ?| ?Stage two ?| ? Decreased GFR ? + +-------- + ------+| ?30-59 ?| ?Stage three ?| ? Stage three ? + +-------- + ------+| ?15-29 ?| ?Stage four ? | ? Stage four ?+ +------- + -------+| ?<15 (or dialysis) ? ?| ?Stage five ? | ? Stage five ?+ +------- + -------+ *Each stage assumes the associated GFR level has been in effect for at least three months. ?Stages 1 to 5, with or without kidney disease, indicate chronic kidney disease. Notes: Determination of stages one and two (with eGFR >59mL/min/1.73 m2) requires estimation of kidney damage for at least three months as defined by structural or functional abnormalities of the kidney, manifested by either:Pathological abnormalities or Markers of kidney damage (including abnormalities in the composition of the blood or urine or abnormalities in imaging tests). Lab Interpretation (test code = Abnormal 18490-5) [facility] with [id number] 12:14:00 Test Item Value Reference Range Interpretation Comments WBC (test code = See_Comment [Automated 5990-2) message] The sy stem which generated this result transmitted reference range : 4.30 - 11.10 10*3/?L. The reference range was not used to interpret this result as normal/abnormal . RBC (test code = See_Comment L [Automated 939-8) message] The sy stem which generated this result transmitted reference range : 3.93 - 5.25 10*6/?L. The reference range was not used to interpret this result as normal/abnormal . HGB (test code = 10.5 g/dL 11.6-15 L 718-7) HCT (test code = 32.0 % 35.7-45.2 L 4544-3) MCV (test code = 96.1 fL 80.6-95.5 H 787-2) MCH (test code = 31.5 pg 25.9-32.8 785-6) MCHC (test code = 32.8 g/dL 31.6-35.1 786-4) RDW-SD (test code = 45.7 fL 39-49.9 66151-6) RDW-CV (test code = 12.9 % 12-15.5 788-0) PLT (test code = See_Comment L [Automated 777-3) message] The sy stem which generated this result transmitted reference range : 166 - 358 10*3/ ?L. The reference r vicente was not used to interpret this result as normal/abnormal . MPV (test code = 10.7 fL 9.5-12.9 64158-7) NRBC/100 WBC (test See_Comment [Automat ed code = 2915122512) message] The system which generated this result transmitted reference range : 0.0 - 10.0 /100 WBCs. The refer ence range was not u sed to interpret th is result as normal/abnormal . NRBC x10^3 (test code <0.01 See_Comment [Auto mated = 8025409987) message] The s ystem which generated this result transmitted reference range : 10*3/?L. The reference range was not used to interpret this result as normal/abnormal . GRAN MAT (NEUT) % 67.7 % (test code = 770-8) IMM GRAN % (test code 0.40 % = 8234747040) LYMPH % (test code = 21.1 % 736-9) MONO % (test code = 7.4 % 5905-5) EOS % (test code = 3.2 % 713-8) BASO % (test code = 0.2 % 706-2) GRAN MAT x10^3(ANC) 5.45 10*3/uL 1.88-7.09 (test code = 1169579198) IMM GRAN x10^3 (test 0.03 10*3/uL 0-0.06 code = 9034380621) LYMPH x10^3 (test code 1.70 10*3/uL 1.32-3.29 = 731-0) MONO x10^3 (test code 0.60 10*3/uL 0.33-0.92 = 742-7) EOS x10^3 (test code = 0.26 10*3/uL 0.03-0.39 711-2) BASO x10^3 (test code <0.03 0.01-0.07 = 704-7) Lab Interpretation Abnormal (test code = 29622-0) [facility] [id number] 17:05:00 Test Item Value Reference Range Interpretation Comments URINE CULTURE (test No aerobic growth (< code = 630-4) 1000 CFU/mL) [facility] (NA, K, CL, CO2, GLUCOSE, BUN, CREATININE, CA)2020-06-15 11:21:00 Test Item Value Reference Range Interpretation Comments NA (test code = 135 mmol/L 135-145 2891067784) K (test code = 3.1 mmol/L 3.5-5 L 7033821813) CL (test code = 109 mmol/L 98-108 H 3084798403) CO2 TOTAL (test code = 22 mmol/L 23-31 L 7837240962) AGAP (test code = 2-16 3181216203) BUN (test code = 3 mg/dL 7-23 L 2236658344) GLUCOSE (test code = 76 mg/dL 70-110 8289287745) CREATININE (test code = 0.40 mg/dL 0.5-1.04 L 0230604513) CALCIUM (test code = 7.5 mg/dL 8.6-10.6 L 1089988012) eGFR Calculation mL/min/1.73m2 (Non-) (test code = 5970693927) eGFR Calculation mL/min/1.73m2 () (test code = 8584441244) ALISA (test code = ALISA) Association of Glomerular Filtration Rate (GFR) and Staging of Kidney Disease* + --+ --+ ------+| GFR (mL/min/1.73 m2) ?| With Kidney Damage ?| ?Without Kidney Damage+ --------+ --------+ +| ?>90 ?| ?Stage one ?| ? Normal ?+ ---+ ---+ -------+| ?60-89 ?| ?Stage two ?| ? Decreased GFR ? + --+ --+ ------+| ?30-59 ?| ?Stage three ?| ? Stage three ? + --+ --+ ------+| ?15-29 ?| ?Stage four ? | ? Stage four ?+ ---+ ---+ -------+| ?<15 (or dialysis) ? ?| ?Stage five ? | ? Stage five ?+ ---+ ---+ -------+ *Each stage assumes the associated GFR level has been in effect for at least three months. ?Stages 1 to 5, with or without kidney disease, indicate chronic kidney disease. Notes: Determination of stages one and two (with eGFR >59mL/min/1.73 m2) requires estimation of kidney damage for at least three months as defined by structural or functional abnormalities of the kidney, manifested by either:Pathological abnormalities or Markers of kidney damage (including abnormalities in the composition of the blood or urine or abnormalities in imaging tests). Lab Interpretation Abnormal (test code = 09646-6) [facility] Time / [id number] 10:59:00 Test Item Value Reference Range Interpretation Comments PROTIME PATIENT (test See_Comment [Auto mated message] code = 5964-2) The system [employer] ich generated this result transmitted ref erence range: 10.1 - 1 2.6 Seconds. The re ference range was not u sed to interpret this result as normal/abnor mal. INR (test code = 6301-6) Nor mal INR <1.1; Warfarin Therap eutic range 2.0 to 3. 0 or 2.5 to 3.5, dep ending upon the indica tions. Lab Interpretation (test Normal code = 98024-6) [facility]2020-[facility]-22 10:59:00 Test Item Value Reference Range Interpretation Comments APTT Patient (test code = See_Comment [ Automated message] 3173-2) The system [employer] [employer] [facility] generated this result transmitted ref erence range: 26 - 36 Seconds. The re ference range was not u sed to interpret this result as normal/abnor mal. Lab Interpretation (test Normal code = 71070-9) [facility] with [id number] 10:52:00 Test Item Value Reference Range Interpretation Comments WBC (test code = See_Comment [Automated 6690-2) message] The sy stem which generated this result transmitted reference range : 4.30 - 11.10 10*3/?L. The reference range was not used to interpret this result as normal/abnormal . RBC (test code = See_Comment L [Automated 789-8) message] The sy stem which generated this result transmitted reference range : 3.93 - 5.25 10*6/?L. The reference range was not used to interpret this result as normal/abnormal . HGB (test code = 9.4 g/dL 11.6-15 L 718-7) HCT (test code = 29.1 % 35.7-45.2 L 4544-3) MCV (test code = 99.0 fL 80.6-95.5 H 787-2) MCH (test code = 32.0 pg 25.9-32.8 785-6) MCHC (test code = 32.3 g/dL 31.6-35.1 786-4) RDW-SD (test code = 47.3 fL 39-49.9 97485-8) RDW-CV (test code = 13.2 % 12-15.5 788-0) PLT (test code = See_Comment L [Automated 777-3) message] The sy stem which generated this result transmitted reference range : 166 - 358 10*3/ ?L. The reference r vicente was not used to interpret this result as normal/abnormal . MPV (test code = 11.4 fL 9.5-12.9 51244-3) NRBC/100 WBC (test See_Comment [Automat ed code = 7633405704) message] The system which generated this result transmitted reference range : 0.0 - 10.0 /100 WBCs. The refer ence range was not u sed to interpret th is result as normal/abnormal . NRBC x10^3 (test code <0.01 See_Comment [Auto mated = 2610487465) message] The s ystem which generated this result transmitted reference range : 10*3/?L. The reference range was not used to interpret this result as normal/abnormal . GRAN MAT (NEUT) % 69.5 % (test code = 770-8) IMM GRAN % (test code 0.50 % = 5163757725) LYMPH % (test code = 20.1 % 736-9) MONO % (test code = 7.5 % 5905-5) EOS % (test code = 2.2 % 713-8) BASO % (test code = 0.2 % 706-2) GRAN MAT x10^3(ANC) 5.66 10*3/uL 1.88-7.09 (test code = 6131790089) IMM GRAN x10^3 (test 0.04 10*3/uL 0-0.06 code = 1625380749) LYMPH x10^3 (test code 1.64 10*3/uL 1.32-3.29 = 731-0) MONO x10^3 (test code 0.61 10*3/uL 0.33-0.92 = 742-7) EOS x10^3 (test code = 0.18 10*3/uL 0.03-0.39 711-2) BASO x10^3 (test code <0.03 0.01-0.07 = 704-7) Lab Interpretation Abnormal (test code = 74668-7) [facility]ITAM[facility] B12, [id number] 22:49:00 Test Item Value Reference Range Interpretation Comments VIT B12 (test code = 358 pg/mL 240-930 9097365786) ALISA (test code = ALISA) Biotin has been reported to cause a positive bias, interpret results relative to patient's use of biotin. Lab Interpretation (test Normal code = 64911-8) [facility]OL[facility]2020-11-21 22:49:00 Test Item Value Reference Range Interpretation Comments FOLATE SER (test code = 11.5 ng/mL 3-20 6024636301) Lab Interpretation (test code = Normal 69126-6) [facility]oHEPATIC FUNCTION PANEL (18013) (ALB,T.PRO,BILI T,BU/BC,ALT,AST,ALK PHOS)2020-06-14 21:40:00 Test Item Value Reference Range Interpretation Comments TOTAL BILI (test code = 0057986473) 0.5 mg/dL 0.1-1.1 BILI UNCON (test code = 7917128560) 0.5 mg/dL 0.1-1.1 BILI CONJ (test code = 2005306598) 0.0 mg/dL 0-0.3 T PROTEIN (test code = 6164685258) 5.2 g/dL 6.3-8.2 L ALBUMIN (test code = 3284185798) 2.7 g/dL 3.5-5 L ALK PHOS (test code = 9321702391) 49 U/L 34-122 ALTv (test code = 1742-6) 8 U/L 5-35 AST(SGOT) (test code = 2075137649) 18 U/L 13-40 Lab Interpretation (test code = Abnormal 39223-5) [facility]oUrinalysis2020-11-21 19:51:00 Test Item Value Reference Range Interpretation Comments APPEARANCE (test code = Turbid Clear A 7537275316) COLOR (test code = Yellow Yellow 3785067944) PH (test code = 4.8-8.0 1420815689) SP GRAVITY (test code = 1.003-1.030 0290567274) GLU U QUAL (test code = Normal Normal 4945939187) BLOOD (test code = 2+ Negative A 6030626369) KETONES (test code = 5 mg/dL Negative A 1320527657) PROTEIN (test code = 30 mg/dL Negative A 2887-8) UROBILIN (test code = Normal Normal 0079985440) BILIRUBIN (test code = Negative Negative 0316298273) NITRITE (test code = Negative Negative 6544892660) LEUK ILSA (test code = 500/uL Negative A 4466857755) RBC/HPF (test code = See_Comment H [Autom ated message] 9491436428) The system [employer] generated this result transmitted ref erence range: 0 - 3 HP F. The reference range was not used to int erpret this result as normal/abnormal . WBC/HPF (test code = >182 See_Comment H [Autom ated message] 2893748736) The system [employer] generated this result transmitted ref erence range: 0 - 5 HP F. The reference range was not used to int erpret this result as normal/abnormal . BACTERIA (test code = Moderate Negative A 1099102683) MUCOUS (test code = Slight Negative LPF A 9555784629) SQ EPITH (test code = See_Comment H [Auto mated message] 5266300081) The system [employer] generated this result transmitted ref erence range: <=2 HPF. The reference range was not used to int erpret this result as normal/abnormal . WBC CLUMPS (test code = See_Comment H [Au tomated message] 0546355721) The system [employer] generated this result transmitted ref erence range: <=1 HPF. The reference range was not used to int erpret this result as normal/abnormal . Lab Interpretation (test Abnormal code = 61571-9) [facility] METABOLIC PANEL (NA, K, CL, CO2, GLUCOSE, BUN, CREATININE, CA)2020-06-14 18:08:00 Test Item Value Reference Range Interpretation Comments NA (test code = 135 mmol/L 135-145 1996599000) K (test code = 3.4 mmol/L 3.5-5 L 5216336929) CL (test code = 108 mmol/L 98-108 5025642832) CO2 TOTAL (test code = 23 mmol/L 23-31 9570001171) AGAP (test code = 2-16 0214088908) BUN (test code = 6 mg/dL 7-23 L 2590005823) GLUCOSE (test code = 83 mg/dL 70-110 4725927483) CREATININE (test code = 0.39 mg/dL 0.5-1.04 L 6485032871) CALCIUM (test code = 7.4 mg/dL 8.6-10.6 L 3981664966) eGFR Calculation mL/min/1.73m2 (Non-) (test code = 7752147583) eGFR Calculation mL/min/1.73m2 () (test code = 1074250346) ALISA (test code = ALISA) Association of Glomerular Filtration Rate (GFR) and Staging of Kidney Disease* + --+ --+ ------+| GFR (mL/min/1.73 m2) ?| With Kidney Damage ?| ?Without Kidney Damage+ --------+ --------+ +| ?>90 ?| ?Stage one ?| ? Normal ?+ ---+ ---+ -------+| ?60-89 ?| ?Stage two ?| ? Decreased GFR ? + --+ --+ ------+| ?30-59 ?| ?Stage three ?| ? Stage three ? + --+ --+ ------+| ?15-29 ?| ?Stage four ? | ? Stage four ?+ ---+ ---+ -------+| ?<15 (or dialysis) ? ?| ?Stage five ? | ? Stage five ?+ ---+ ---+ -------+ *Each stage assumes the associated GFR level has been in effect for at least three months. ?Stages 1 to 5, with or without kidney disease, indicate chronic kidney disease. Notes: Determination of stages one and two (with eGFR >59mL/min/1.73 m2) requires estimation of kidney damage for at least three months as defined by structural or functional abnormalities of the kidney, manifested by either:Pathological abnormalities or Markers of kidney damage (including abnormalities in the composition of the blood or urine or abnormalities in imaging tests). Lab Interpretation Abnormal (test code = 03890-3) [facility]oMagnesium [id number] 18:08:00 Test Item Value Reference Range Interpretation Comments MAGNESIUM (test code = 4262585249) 1.7 mg/dL 1.7-2.4 Lab Interpretation (test code = Normal 92700-1) [facility] WITH [id number] 17:50:00 Test Item Value Reference Range Interpretation Comments WBC (test code = See_Comment H [Automated 6690-2) message] The system which generated this result transmit piyush reference range : 4.30 - 11.10 10*3/?L. The reference range was not used to interpret this result as normal/abnormal . RBC (test code = See_Comment L [Automated 789-8) message] The system which generated this result transmit piyush reference range : 3.93 - 5.25 10*6/?L. The reference range was not used to interpret this result as normal/abnormal . HGB (test code = 10.2 g/dL 11.6-15 L 718-7) HCT (test code = 30.9 % 35.7-45.2 L 4544-3) MCV (test code = 98.1 fL 80.6-95.5 H 787-2) MCH (test code = 32.4 pg 25.9-32.8 785-6) MCHC (test code = 33.0 g/dL 31.6-35.1 786-4) RDW-SD (test code = 46.1 fL 39-49.9 40043-9) RDW-CV (test code = 13.0 % 12-15.5 788-0) PLT (test code = See_Comment L [Automated 777-3) message] The system which generated this result transmit piyush reference range : 166 - 358 10*3/ ?L. The reference range was not u sed to interpret th is result as normal/abnormal . MPV (test code = 10.6 fL 9.5-12.9 44176-4) NRBC/100 WBC (test See_Comment [Automat ed code = 9344920947) message] The system which generated this result transmit piyush reference range : 0.0 - 10.0 /100 WBCs. The reference range was not used to interpret this result as normal/abnormal . NRBC x10^3 (test code <0.01 See_Comment [Auto mated = 4165964789) message] The system which generated this result transmit piyush reference range : 10*3/?L. The reference range was not used to interpret this result as normal/abnormal . GRAN MAT (NEUT) % 86.5 % (test code = 770-8) IMM GRAN % (test code 0.50 % = 2425369821) LYMPH % (test code = 7.2 % 736-9) MONO % (test code = 5.4 % 5905-5) EOS % (test code = 0.2 % 713-8) BASO % (test code = 0.2 % 706-2) GRAN MAT x10^3(ANC) 10.37 10*3/uL 1.88-7.09 H (test code = 2452086622) IMM GRAN x10^3 (test 0.06 10*3/uL 0-0.06 code = 2932091981) LYMPH x10^3 (test code 0.87 10*3/uL 1.32-3.29 L = 731-0) MONO x10^3 (test code 0.65 10*3/uL 0.33-0.92 = 742-7) EOS x10^3 (test code = 0.03 10*3/uL 0.03-0.39 711-2) BASO x10^3 (test code 0.03 10*3/uL 0.01-0.07 = 704-7) Lab Interpretation Abnormal (test code = 72555-2) [facility]2020-[facility] 00:38:00 Test Item Value Reference Range Interpretation Comments APPEARANCE (test code = Hazy Clear A 7248472378) COLOR (test code = Diane Yellow A 4392332799) PH (test code = 4.8-8.0 3667174309) SP GRAVITY (test code = 1.003-1.030 8516358778) GLU U QUAL (test code = Normal Normal 2364604203) BLOOD (test code = Negative Negative 7659541814) KETONES (test code = 80 mg/dL Negative A 1764367063) PROTEIN (test code = Negative Negative 2887-8) UROBILIN (test code = Normal Normal 6234933249) BILIRUBIN (test code = Negative Negative 5831551152) NITRITE (test code = Positive Negative A 4334225437) LEUK ILSA (test code = 75/uL Negative A 1229225330) RBC/HPF (test code = See_Comment H [Autom ated message] 8548133098) The system [employer] generated this result transmitted ref erence range: 0 - 3 HP F. The reference range was not used to int erpret this result as normal/abnormal . WBC/HPF (test code = See_Comment H [Autom ated message] [id number]) The system [employer] generated this result transmitted ref erence range: 0 - 5 HP F. The reference range was not used to int erpret this result as normal/abnormal . BACTERIA (test code = Many Negative A 0369137044) MUCOUS (test code = Marked Negative LPF A 0240220930) SQ EPITH (test code = HPF [id number]) Lab Interpretation (test Abnormal code = 86549-0) [id number] Test Item Value Reference Range Interpretation Comments POCT PREG (test code = 1605) Negative On board controls acceptable with Yes C Line (test code = 3574) POCT PREG LOT # (test code = 3575) [id number] POCT PREG TEST DATE (test 02/21/2021 code = 3576) Lab Interpretation (test code = Normal 70540-2) [facility] - [facility]EN[facility] A & B DIRECT [id number] 23:58:00 Test Item Value Reference Range Interpretation Comments Influenza A (test code = 95192-5) Negative Negative Influenza B (test code = 86851-8) Negative Negative Lab Interpretation (test code = Normal 52432-8) [facility] [id number] 05:54:00 Test Item Value Reference Range Interpretation Comments RBC/HPF (test code = See_Comment H [Autom ated message] [id number]) The system [employer] generated this result transmitted ref erence range: 0 - 3 HP F. The reference range was not used to int erpret this result as normal/abnormal . WBC/HPF (test code = See_Comment H [Autom ated message] [id number]) The system [employer] generated this result transmitted ref erence range: 0 - 5 HP F. The reference range was not used to int erpret this result as normal/abnormal . BACTERIA (test code = Many Negative A 0121829494) SQ EPITH (test code = See_Comment H [Auto mated message] [id number]) The system [employer] generated this result transmitted ref erence range: <=2 HPF. The reference range was not used to int erpret this result as normal/abnormal . MUCOUS (test code = Moderate Negative LPF A [id number]) Lab Interpretation (test Abnormal code = 63306-3) [facility] [id number] 05:54:00 Test Item Value Reference Range Interpretation Comments RBC/HPF (test code = See_Comment H [Autom ated message] [id number]) The system [employer] generated this result transmitted ref erence range: 0 - 3 HP F. The reference range was not used to int erpret this result as normal/abnormal . WBC/HPF (test code = See_Comment H [Autom ated message] [id number]) The system [employer] generated this result transmitted ref erence range: 0 - 5 HP F. The reference range was not used to int erpret this result as normal/abnormal . BACTERIA (test code = Many Negative A 9863146332) SQ EPITH (test code = See_Comment H [Auto mated message] [id number]) The system [employer] generated this result transmitted ref erence range: <=2 HPF. The reference range was not used to int erpret this result as normal/abnormal . MUCOUS (test code = Moderate Negative LPF A [id number]) Lab Interpretation (test Abnormal code = 96437-7) [facility] URINALYSIS W SPECIFIC [id number] 00:59:00 Test Item Value Reference Range Interpretation Comments POCT U SP GRAV (test code = 1.020 mg/dl 1.005-1.025 3255) POCT PH U (test code = 3254) 5 mg/dl 5-8 POCT U LEUK EST (test code = + Negative - Negative 3263) POCT U NIT (test code = 3262) - Negative - Negative POCT U PROT (test code = Negative - Negative 3259) POCT U GLU (test code = 3256) negative Negative - Negative POCT U KETONE (test code = negative Negative - Negative 3258) POCT U UROBILI (test code = normal 0.2-1 3260) POCT U BILI (test code = negative Negative - Negative 3261) POCT U BLD (test code = 3257) trace Negative - Negative POCT U COLOR (test code = diane 3266) POCT U APPEAR (test code = cloudy 3267) [facility] URINALYSIS W SPECIFIC [id number] 00:59:00 Test Item Value Reference Range Interpretation Comments POCT U SP GRAV (test code = 1.020 mg/dl 1.005-1.025 3255) POCT PH U (test code = 3254) 5 mg/dl 5-8 POCT U LEUK EST (test code = + Negative - Negative 3263) POCT U NIT (test code = 3262) - Negative - Negative POCT U PROT (test code = Negative - Negative 3259) POCT U GLU (test code = 3256) negative Negative - Negative POCT U KETONE (test code = negative Negative - Negative 3258) POCT U UROBILI (test code = normal 0.2-1 3260) POCT U BILI (test code = negative Negative - Negative 3261) POCT U BLD (test code = 3257) trace Negative - Negative POCT U COLOR (test code = diane 3266) POCT U APPEAR (test code = cloudy 3267) [facility] RAPID STREP SCREEN FOR GROUP [id number] 00:33:00 Test Item Value Reference Range Interpretation Comments POCT GP A STREP (test Neg Negative - code = 59507-8) Negative ALISA (test code = ALISA) accurate development and interpretation of all internal controls Lab Interpretation Normal (test code = 40342-5) [facility] [id number] 00:33:00 Test Item Value Reference Range Interpretation Comments POCT GP A STREP (test Neg Negative - code = 93378-8) Negative ALISA (test code = ALISA) accurate development and interpretation of all internal controls Lab Interpretation Normal (test code = 60261-4) [facility]"
[2021-08-14] MEDS ORDERED: ONDANSETRON 4 MG (ODT) TAB ONE (20:23)
[2021-08-14] MEDS ORDERED: METOCLOPRAMIDE 10 MG/2mL INJ ONE (23:06)
[2021-08-14] MEDS ORDERED: FAMOTIDINE 20 MG/2 ML VIAL IV ONE (23:06)
[2021-08-14] MEDS ORDERED: NA CHLORIDE 0.9% 1,000 ML ONE (23:07)
[2021-08-14 23:36] LABS: Absolute Lymphocytes (CBC) 0.4 K/uL (0.7-4.9); Hematocrit 47.4 % (36.0-45.0); Lymphocytes % 2.5 % (15.3-44.8); MPV 9.2 fL (7.6-11.3); RBC Red Blood Cell Count 4.99 M/uL (3.86-4.86)
[2021-08-14 23:52] LABS: Albumin 4.5 g/dL (3.4-5.0); Bilirubin Direct 0.2 mg/dL (0-0.2); Bilirubin Total 0.9 mg/dL (0.2-1.0); Magnesium 2.3 mg/dL (1.8-2.4); Potassium 4.3 mmol/L (3.5-5.1)
[2021-08-15 00:10] LABS: SARS-COV-2 RT PCR NEGATIVE (NEGATIVE)
[2021-08-15 00:49] LABS: Urine Blood Trace-lysed (Negative); Urine Glucose Negative (Negative); Urine Protein 1+ (Negative); Urine Specific Gravity >=1.030 (1.005-1.030); Urine pH 5.5 (5.0-7.0)
[2021-08-15 00:56] LABS: Urine Specific Gravity/Preg >1.030 (1.005-1.030)
[2021-08-15 00:58] LABS: Urine Bacteria 20-50 /HPF (<20); Urine RBC <5 /HPF (NONE SEEN)
[2021-08-15 00:59] LABS: Urine Mucus 2+ /HPF (NONE SEEN)
[2021-08-15] MEDS ORDERED: CEFTRIAXONE 1000 MG/VIAL ONE (02:18)
--- NOTE | 2021-08-15 02:58 | EDPHYS ---
Physician Documentation [facility] Name: Mable Verma Age: 26 yrs Sex: Female : 1995 Arrival Date: 08/14/2021 Time: 19:34 Bed 19 Private MD: ED Physician Cory Ferreira HPI: 08/14 21:49 This 26 yrs old Female presents to ER via Ambulatory with complaints of Vomiting, cp DEHYDRATION. 21:49 The patient presents to the emergency department with nausea, with "dry heaves", cp vomiting, that is continuous, described as bilious. Onset: The symptoms/episode began/occurred this morning. 21:49 Associated signs and symptoms: Pertinent positives: anorexia, Pertinent negatives: cp constipation, diarrhea, fever, GI bleeding, vaginal discharge. Severity of symptoms: in the emergency department the symptoms are unchanged despite home interventions. 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 - Social history:: Smoking status: Reported history of juuling and/or vaping. ROS: 21:53 Constitutional: Negative for fever. cp 21:53 Abdomen/GI: Positive for nausea, vomiting. 21:53 Neuro: Positive for dizziness, headache, Negative for altered mental status, weakness. 21:53 Eyes: Negative for injury, pain, redness, and discharge. cp 21:53 Cardiovascular: Negative for chest pain. 21:53 Respiratory: Negative for cough, shortness of breath, wheezing. 21:53 : Negative for burning with urination, vaginal bleeding, vaginal discharge. cp 21:53 All other systems are negative. Exam: 21:55 Constitutional: The patient appears in no acute distress, alert, awake, non-toxic, well cp developed, well nourished. 21:55 Head/Face: Normocephalic, atraumatic. cp 21:55 Eyes: Periorbital structures: appear normal, Pupils: equal, round, and reactive to light and accomodation, Extraocular movements: intact throughout, Conjunctiva: normal, no exudate, no injection, Sclera: no appreciated abnormality, Lids and lashes: appear normal, bilaterally. 21:55 ENT: External ear(s): are unremarkable, Nose: is normal, Mouth: Lips: moist, Oral mucosa: moist, Posterior pharynx: Airway: no evidence of obstruction, patent. 21:55 Neck: ROM/movement: pain, that is mild, with flexion, limited range of motion, is not appreciated, Meningeal signs: are not present, nuchal rigidity, is not appreciated, Lymph nodes: no appreciated lymphadenopathy. 21:55 Chest/axilla: Inspection: normal. 21:55 Cardiovascular: Rate: normal, Rhythm: regular. 21:55 Respiratory: the patient does not display signs of respiratory distress, Respirations: normal, no use of accessory muscles, no retractions, labored breathing, is not present, Breath sounds: are clear throughout, no decreased breath sounds, no stridor, no wheezing. 21:55 Abdomen/GI: Inspection: abdomen appears normal, Bowel sounds: active, all quadrants, Palpation: soft, in all quadrants, mild abdominal tenderness, in the umbilical area, rebound tenderness, is not appreciated, involuntary guarding, is not appreciated. 21:55 Back: ROM is normal, CVA tenderness, is noted on the right. 21:55 Neuro: Orientation: to person, place \\T\\ time. Mentation: is normal, Motor: moves all fours, strength is normal, Sensation: is normal. Vital Signs: 20:16 BP 107 / 90; Pulse 91; Resp 20 S; Temp 98.1(O); Pulse Ox 100% on R/A; Weight 53.52 kg as6 (R); Height 5 ft. (152.40 cm) (R); 21:35 BP 99 / 61; Pulse 75; Resp 18; Pulse Ox 100% on R/A; ll3 22:30 BP 113 / 64; Pulse 82; Resp 18; Pulse Ox 100% on R/A; ll3 23:30 BP 101 / 56; Pulse 75; Resp 15; Pulse Ox 100% on R/A; ll3 08/15 00:30 BP 97 / 62; Pulse 91; Resp 15; Pulse Ox 100% ; ll3 01:30 BP 99 / 67; Pulse 85; Resp 15; Pulse Ox 100% on R/A; ll3 02:30 BP 101 / 64; Pulse 87; Resp 15; Pulse Ox 100% on R/A; ll3 03:17 BP 94 / 60; Pulse 92; Resp 18; Pulse Ox 100% on R/A; tw5 08/14 20:16 Body Mass Index 23.05 (53.52 kg, 152.40 cm) as6 MDM: 08/14 21:41 Patient medically screened. cp 22:00 Differential diagnosis: gastritis, cholecystitis, pancreatitis, appendicitis, viral cp gastroenteritis, gastroenteritis, dehydration, electrolyte abnormality, uti. 08/15 02:56 Data reviewed: vital signs, nurses notes, lab test result(s), radiologic studies, CT cp scan. 02:56 Counseling: I had a detailed discussion with the patient and/or guardian regarding: the cp historical points, exam findings, and any diagnostic results supporting the discharge/admit diagnosis, lab results, radiology results, to return to the emergency department if symptoms worsen or persist or if there are any questions or concerns that arise at home. Response to treatment: the patient's symptoms have markedly improved after treatment, VSS. Nausea markedly improved and vomiting resolved. Patient tolerating po fluids. Will discharge to home for continued monitoring. 08/14 21:52 Order name: Basic Metabolic Panel; Complete Time: 00:24 cp 08/15 00:24 Interpretation: Normal except: GLUC 73; BUN 23; GFR 83. cp 08/14 21:52 Order name: CBC with Diff; Complete Time: 23:53 cp 08/14 23:53 Interpretation: Normal except: WBC 14.10; RBC 4.99; HGB 15.4; HCT 47.4; MCV 95.1; ALEJANDRA% cp 94.4; LYM% 2.5; MN% 2.8; NEUT A 13.4; LYMA 0.4. 08/14 21:52 Order name: Hepatic Function; Complete Time: 00:24 cp 08/15 00:25 Interpretation: Normal except: AST 12; TP 9.0; GLOB 4.5; A/G 1.0. cp 08/14 21:52 Order name: Lipase; Complete Time: 00:24 cp 08/14 21:52 Order name: COVID-19/FLU A+B (Document "Date of Onset" if Symptomatic); Complete Time: cp 00:24 08/14 21:52 Order name: Urine Microscopic Only; Complete Time: 02:00 cp 08/15 02:00 Interpretation: Normal except: UBACT 20-50. cp 08/14 21:52 Order name: Magnesium; Complete Time: 00:24 cp 08/15 00:28 Order name: CT Abd/Pelvis - IV Contrast Only cp 08/15 00:48 Order name: Urine Dipstick-Ancillary; Complete Time: 02:00 EDMS 08/15 00:49 Order name: Urine --Ancillary (enter results); Complete Time: 02:00 mw2 08/15 01:00 Order name: Urine Culture EDMS 08/14 21:52 Order name: IV Saline Lock; Complete Time: 23:34 cp 08/14 21:52 Order name: Labs collected and sent; Complete Time: 23:34 cp 08/14 21:52 Order name: Urine Dipstick-Ancillary (obtain specimen); Complete Time: 00:49 cp 08/14 21:52 Order name: Urine Test (obtain specimen); Complete Time: 00:49 cp 08/15 02:01 Order name: PO challenge; Complete Time: 02:07 cp Administered Medications: 08/14 20:23 Drug: Ondansetron 4 mg Route: PO; as6 08/15 02:55 Follow up: Response: No adverse reaction 3 08/14 23:33 Drug: NS 0.9% 1000 ml Route: IV; Rate: 1 bolus; Site: right antecubital; 3 08/15 02:55 Follow up: Response: No adverse reaction; IV Status: Completed infusion; IV Intake: ll3 1000ml 08/14 23:33 Drug: Reglan (metoCLOPramide) 10 mg Route: IVP; Site: right antecubital; 3 08/15 02:55 Follow up: Response: No adverse reaction 3 08/14 23:33 Drug: Pepcid (famotidine) 20 mg Route: IVP; Site: right antecubital; 3 08/15 00:29 Follow up: Response: No adverse reaction 3 02:07 Not Given (Patient Refused): Zofran (Ondansetron) 4 mg IVP once; over 2 minutes 3 02:41 Drug: Rocephin - (cefTRIAXone) 1 grams Route: IVPB; Infused Over: 30 mins; Site: right ll3 antecubital; 02:55 Follow up: Response: No adverse reaction; IV Status: Completed infusion; IV Intake: [id number] Disposition: 05:42 Co-signature as Attending Physician, Cory Ferreira MD. [email or web address] Disposition Summary: 08/15/21 02:57 Discharge Ordered Location: Home cp Problem: new cp Symptoms: have improved cp Condition: Stable cp Diagnosis - Nausea with vomiting, unspecified cp - Headache cp - UTI/ Urinary tract infection, site not specified cp Followup: cp - With: Private Physician - When: 2 - 3 days - Reason: Recheck today's complaints Discharge Instructions: - Discharge Summary Sheet cp - General Headache Without Cause cp - Nausea and Vomiting, Adult cp - Urinary Tract Infection, Adult cp Forms: - Medication Reconciliation Form cp - Thank You Letter cp - Antibiotic Education cp - Prescription Opioid Use cp - Work release form mw2 Prescriptions: - Pepcid 20 mg Oral Tablet - take 1 tablet by ORAL route every 12 hours for 5 days; 10 tablet; Refills: 0, cp Product Selection Permitted - Zofran 4 mg Oral Tablet - take 1 tablet by ORAL route every 12 hours As needed; 20 tablet; Refills: 0, cp Product Selection Permitted - Bactrim DS 800-160 mg Oral Tablet - take 1 tablet by ORAL route every 12 hours for 7 days; 14 tablet; Refills: 0, cp Product Selection Permitted Signatures: Dispatcher [employer] EDMS Kishor Cooney PA PA cp Cory Ferreira MD MD [email or web address] José Razo RN RN as6 Paramjit Pñea RN RN ll3 Corrections: (The following items were deleted from the chart) 08/14 20:20 20:19 PMHx: UTI; as6 as6
--- NOTE | 2021-08-15 02:58 | ER ---
Nurse's Notes [facility] Name: aMble Verma Age: 26 yrs Sex: Female : 1995 Arrival Date: 08/14/2021 Time: 19:34 Bed 19 Private MD: Diagnosis: Nausea with vomiting, unspecified;Headache;UTI/ Urinary tract infection, site not specified Presentation: 08/14 20:16 Chief complaint: Patient states: "I can't stop throwing up and I have been having this as6 pounding in my head" pt dry heaving in triage room. Coronavirus screen: Client presents with at least one sign or symptom that may indicate coronavirus-19. Standard/surgical mask placed on the client. Ebola Screen: No symptoms or risks identified at this time. Initial Sepsis Screen: Does the patient meet any 2 criteria? No. Patient's initial sepsis screen is negative. Does the patient have a suspected source of infection? No. Patient's initial sepsis screen is negative. Risk Assessment: Do you want to hurt yourself or someone else? Patient reports no desire to harm self or others. Onset of symptoms was August 14, 2021. 20:16 Method Of Arrival: Ambulatory as6 20:16 Acuity: WOJCIECH 3 as6 Triage Assessment: 20:20 General: Appears ill, Behavior is calm, cooperative. Pain: Complains of pain in as6 headache. GI: Reports nausea, vomiting. 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 - Social history:: Smoking status: Reported history of juuling and/or vaping. Screenin/22 00:37 Abuse screen: Denies threats or abuse. Nutritional screening: No deficits noted. ll3 Tuberculosis screening: No symptoms or risk factors identified. Fall Risk IV access (20 points). Gait- Weak (10 pts.). Mental Status- Oriented to own ability (0 pts). Total Gonzalez Fall Scale indicates Low Risk Score (25-44 pts). Side Rails Up X 2 Placed close to Nursing Station Frequent Obs/Assesments occuring. Assessment: 08/14 21:35 General: Appears in no apparent distress. uncomfortable, Behavior is calm, cooperative, ll3 quiet, Reports feeling ill for. Pain: Denies pain. Neuro: Level of Consciousness is awake, alert, obeys commands, Oriented to person, place, time, situation. Respiratory: No deficits noted. Respiratory effort is even, unlabored, Respiratory pattern is regular, symmetrical. GI: Abdomen is flat, non-distended, Reports nausea, vomiting. Derm: Skin is pink, warm \\T\\ dry. 22:30 Reassessment: Patient appears in no apparent distress at this time. No changes from ll3 previously documented assessment. Patient and/or family updated on plan of care and expected duration. Pain level reassessed. Patient is alert, oriented x 3, equal unlabored respirations, skin warm/dry/pink. 23:30 Reassessment: Patient appears in no apparent distress at this time. No changes from ll3 previously documented assessment. Patient and/or family updated on plan of care and expected duration. Pain level reassessed. Patient is alert, oriented x 3, equal unlabored respirations, skin warm/dry/pink. 08/15 00:30 Reassessment: Patient appears in no apparent distress at this time. No changes from ll3 previously documented assessment. Patient and/or family updated on plan of care and expected duration. Pain level reassessed. Patient is alert, oriented x 3, equal unlabored respirations, skin warm/dry/pink. 01:30 Reassessment: Patient appears in no apparent distress at this time. No changes from ll3 previously documented assessment. Patient and/or family updated on plan of care and expected duration. Pain level reassessed. Patient is alert, oriented x 3, equal unlabored respirations, skin warm/dry/pink. 02:30 Reassessment: Patient appears in no apparent distress at this time. No changes from ll3 previously documented assessment. Patient and/or family updated on plan of care and expected duration. Pain level reassessed. Patient is alert, oriented x 3, equal unlabored respirations, skin warm/dry/pink. 03:17 Reassessment: Patient appears in no apparent distress at this time. No changes from ll3 previously documented assessment. Patient and/or family updated on plan of care and expected duration. Pain level reassessed. Patient is alert, oriented x 3, equal unlabored respirations, skin warm/dry/pink. 03:17 General: Reports " I am feeling a lot better, not so dizzy. They said I can drive tw5 myself home if I was feeling okay. I am feeling Okay.". Cardiovascular: Pulses are 2+ in right radial artery and left radial artery. Vital Signs: 08/14 20:16 BP 107 / 90; Pulse 91; Resp 20 S; Temp 98.1(O); Pulse Ox 100% on R/A; Weight 53.52 kg as6 (R); Height 5 ft. (152.40 cm) (R); 21:35 BP 99 / 61; Pulse 75; Resp 18; Pulse Ox 100% on R/A; ll3 22:30 BP 113 / 64; Pulse 82; Resp 18; Pulse Ox 100% on R/A; ll3 23:30 BP 101 / 56; Pulse 75; Resp 15; Pulse Ox 100% on R/A; ll3 08/15 00:30 BP 97 / 62; Pulse 91; Resp 15; Pulse Ox 100% ; ll3 01:30 BP 99 / 67; Pulse 85; Resp 15; Pulse Ox 100% on R/A; ll3 02:30 BP 101 / 64; Pulse 87; Resp 15; Pulse Ox 100% on R/A; ll3 03:17 BP 94 / 60; Pulse 92; Resp 18; Pulse Ox 100% on R/A; tw5 08/14 20:16 Body Mass Index 23.05 (53.52 kg, 152.40 cm) as6 ED Course: 08/14 19:34 Patient arrived in ED. es 20:19 Triage completed. as6 20:20 Arm band placed on. as6 21:36 Kishor Cooney PA is PHCP. cp 21:36 Cory Ferreira MD is Attending Physician. cp 23:02 Paramjit Peña, ЕКАТЕРИНА is Primary Nurse. ll3 08/15 00:36 Initial lab(s) drawn, by me, sent to lab. Urine collected: clean catch specimen, clear, ll3 COVID swab sent to lab. Flu and/or RSV swab sent to lab. Inserted saline lock: 22 gauge in right antecubital area, using aseptic technique. Blood collected. 00:37 Patient has correct armband on for positive identification. Bed in low position. Call ll3 light in reach. Side rails up X 1. 01:21 CT Abd/Pelvis - IV Contrast Only In Process Unspecified. EDMS 03:17 No provider procedures requiring assistance completed. IV discontinued, intact, tw5 bleeding controlled, No redness/swelling at site. Pressure dressing applied. Administered Medications: 08/14 20:23 Drug: Ondansetron 4 mg Route: PO; as6 08/15 02:55 Follow up: Response: No adverse reaction ll3 08/14 23:33 Drug: NS 0.9% 1000 ml Route: IV; Rate: 1 bolus; Site: right antecubital; ll3 08/15 02:55 Follow up: Response: No adverse reaction; IV Status: Completed infusion; IV Intake: ll3 1000ml 08/14 23:33 Drug: Reglan (metoCLOPramide) 10 mg Route: IVP; Site: right antecubital; ll3 08/15 02:55 Follow up: Response: No adverse reaction ll3 08/14 23:33 Drug: Pepcid (famotidine) 20 mg Route: IVP; Site: right antecubital; ll3 08/15 00:29 Follow up: Response: No adverse reaction ll3 02:07 Not Given (Patient Refused): Zofran (Ondansetron) 4 mg IVP once; over 2 minutes ll3 02:41 Drug: Rocephin - (cefTRIAXone) 1 grams Route: IVPB; Infused Over: 30 mins; Site: right ll3 antecubital; 02:55 Follow up: Response: No adverse reaction; IV Status: Completed infusion; IV Intake: [id number] Intake: 02:55 IV: 20ml; Total: 20ml. ll3 02:55 IV: 1000ml; Total: 1020ml. ll3 Outcome: 02:57 Discharge ordered by . cp 03:17 Discharged to home ambulatory. tw5 03:17 Condition: improved 03:17 Discharge instructions given to patient, Instructed on discharge instructions, follow up and referral plans. medication usage, Demonstrated understanding of instructions, follow-up care, medications, Prescriptions given X 3. 03:19 Patient left the ED. ll3 Signatures: Dispatcher [employer] EDMS Ina Corado Corey, PA PA cp [place], [place] tw5 José Razo, RN RN as6 Paramjit Peña RN RN ll3 Corrections: (The following items were deleted from the chart) 08/14 20:20 20:19 PMHx: UTI; as6 as6 08/15 00:51 08/14 23:40 General: Appears in no apparent distress. uncomfortable, Behavior is calm, ll3 cooperative, quiet, Reports feeling ill for ll3 08/15 00:51 08/14 23:40 Pain: Denies pain. ll3 ll3 08/15 00:08/14 23:40 Neuro: Level of Consciousness is awake, alert, obeys commands, Oriented to ll3 person, place, time, situation, ll3 08/15 00:08/14 23:40 Respiratory: No deficits noted. Respiratory effort is even, unlabored, ll3 Respiratory pattern is regular, symmetrical, ll3 08/15 00:08/14 23:40 GI: Abdomen is flat, non-distended, Reports nausea, vomiting, ll3 ll3 08/15 00:51 08/14 23:40 Derm: Skin is pink, warm \\T\\ dry. ll3 ll3 08/15 00: 00:38 Reassessment: Patient appears in no apparent distress at this time. No changes ll3 from previously documented assessment. Patient and/or family updated on plan of care and expected duration. Pain level reassessed. Patient is alert, oriented x 3, equal unlabored respirations, skin warm/dry/pink. ll3
[2021-08-15 03:48] VITALS: TEMP 98.1; O2SAT 100
[2021-08-15 03:56] VITALS: BP 94/60
--- NOTE | 2021-08-15 19:56 | RAD REPORT ---
EXAM DESCRIPTION: CT - Abdomen Pelvis W Contrast - 08/15/2021 4:41 am CLINICAL HISTORY: 26 years, Female, nausea/vomiting;Abd pain COMPARISON: 04/23/2017 TECHNIQUE: Contrast-enhanced images of the abdomen and pelvis were performed utilizing 5 mm slice th ickness at 5 mm interval reconstruction from the lung bases to the ischial tuberosities after the adm inistration IV contrast. In addition multiplanar reformats in the coronal and sagittal plane were obtained and reviewed. This exam was performed according to our departmental dose-optimization protocol, which includes auto mated exposure control, adjustment of the mA and/or kV according to patient size and/or use of iterat keli reconstruction technique. FINDINGS: The lung bases demonstrate to be clear. The liver demonstrate decreased attenuation corresponding to mild fatty infiltration. Otherwise the l iver, gallbladder, pancreas, spleen and adrenal glands demonstrate to be unremarkable, no focal lesio ns are noted. The kidneys demonstrate normal uptake of contrast media. No evidence for nephrolithiasis and/or hydro nephrosis. Grossly the unopacified stomach, small bowel and large bowel demonstrate to be within normal limits. There is no evidence for bowel dilatation/or free air. The appendix is normal. The left site colo n is decompressed. The urinary bladder demonstrate to be unremarkable. The uterus demonstrate the presence of a T-shap ed structure with high density along the endometrial cavity corresponding to a intrauterine device. T here are no adnexal masses The aorta demonstrate to be normal. There is no retroperitoneal lymphade nopathy. There is no ascites. The rest of the soft tissue and bony structures are within normal limit s. IMPRESSION: No acute intra-abdominal process. Mild fatty infiltration of the liver. Intrauterine device in place. Electronically signed by: Gil Dowling MD 08/15/2021 1:30 AM FOOD CART ATTENDANT Due to temporary technical issues with the PACS/Fluency reporting system, reports are being signed by the in house radiologists without review as a courtesy to insure prompt reporting. The interpreting radiologist is fully responsible for the content of the report.
== END 2021-08-15 03:19 | disposition home or self-care (01) ==
LOC: ER 19:29
DX: N39.0 Urinary tract infection, site not specified (principal); R51.9 Headache, unspecified; Z20.822 Contact with and (suspected) exposure to COVID-19; I10 Essential (primary) hypertension; Z91.018 Allergy to other foods; Z91.040 Latex allergy status; Z91.048 Other nonmedicinal substance allergy status
CPT/HCPCS: 96361; 87088; 85025; 87086; 80048; 36415; 83735; 81025; 80076; 83690; 0240U; 74177; 96375; 96374; 99284; Q9967; J2765; J7030; 81003; 81015